=== PATIENT | female | born 1955 | race Caucasian/White ===

== ENCOUNTER 2016-05-22 17:35 | Emergency (ER) | payer BC ==
[2016-05-22] MEDS ORDERED: diPHENhydraMINE IV* 50 MG/ML 1 ml VIAL (BENADRYL) IV ONE (18:48)
[2016-05-22 19:03] LABS: Hematocrit 44 % (35-47); Hemoglobin 14.6 g/dl (12.0-16.0); Mean Corpuscular HGB Conc 33 g/dl (31-36); Mean Corpuscular Hemoglobin 29 pg (27-31); Mean Corpuscular Volume 88 fL (80-97); Mean Platelet Volume 9 um3 (7.4-10.4); Red Cell Distribution Width 15 % (10.5-15); White Blood Count 8.2 10^3/ul (3.5-10.8)
[2016-05-22 19:18] LABS: ALT 15 U/L (7-52); Albumin 4.1 g/dL (3.2-5.2); Alkaline Phosphatase 56 U/L (34-104); BUN/Creatinine Ratio 20.7 (8-20); Blood Urea Nitrogen 19 mg/dL (6-24); CO2 Carbon Dioxide 27 mmol/L (22-32); Calcium 9.3 mg/dL (8.6-10.3); Chloride 104 mmol/L (101-111); EGFR African American 79.8 (>60); EGFR Non-African American 62.1 (>60); Globulin 2.9 g/dL (2-4); Glucose 91 mg/dL (70-100); Lipase 75 U/L (11.0-82.0); Sodium 133 mmol/L (133-145)
[2016-05-22] MEDS ORDERED: Iohexol 350* (CONTRAST) 500 ML MDV IV ONE (19:20)
[2016-05-22 20:10] LABS: Urine Bacteria Absent (Absent); Urine Bilirubin Negative (Negative); Urine Glucose Negative (Negative); Urine Nitrite Negative (Negative)
--- NOTE | 2016-05-22 20:11 | RAD ---
INDICATION: Intermittent sharp lower back/flank pain. Post bilateral ovary resection. History of bowel adhesions. COMPARISON: November 28, 2015 CT angiogram. TECHNIQUE: Multidetector CT images were obtained from the lung bases to the ischial tuberosities with 80 mL Omnipaque 350 IV contrast. Arterial phase enhancement. Multiplanar reformation including maximum intensity projection. 3-D arterial volume rendering. REPORT: Images of the inferior thorax remarkable for mild dependent atelectasis. The liver, gallbladder, pancreas, and spleen are unremarkable. Medially extending diverticulum from the second segment of the duodenum without suggestion of acute inflammatory change. Negative for CT abnormality of the small bowel or appendix visualized along the RIGHT pelvic sidewall. Mild diverticulosis of the sigmoid colon without findings of diverticulitis. Negative for ascites or free air. Small fat-containing umbilical hernia without inflammatory change. Normal adrenal glands. Symmetric renal cortical enhancement. Negative for focal renal lesions or hydronephrosis. Unremarkable ureters and urinary bladder. Unremarkable rightward deviated anteverted uterus and adnexal regions. Negative for lymphadenopathy. Atherosclerotic plaque of normal diameter abdominal aorta and iliac arteries. Negative for arterial dissection. Atherosclerotic plaque results in approximate 0.7 cm length 50% stenosis at the celiac axis and approximate 30% short segment stenosis of the proximal superior mesenteric artery. Normal opacification of the inferior mesenteric artery. Negative for renal artery stenosis. Negative for suspicious osseous lesions or fractures. Mild lumbar sacral spine degenerative spondylosis and facet joint osteoarthritis without evidence for significant acquired spinal stenosis. IMPRESSION: 1. Atherosclerosis. Negative for aneurysm or dissection of the abdominal aorta. Approximate 50% celiac axis with significant improvement compared with the November 28, 2015 CT angiogram. Approximate 30% stenosis of the superior mesenteric artery proximally. 2. Normal appendix documented. Mild sigmoid colon diverticulosis without findings of diverticulitis. 3. Negative for obstructive uropathy.
[2016-05-22 20:30] VITALS: BP 123/78
--- NOTE | 2016-05-22 21:00 | ED ---
I, Oh,Bisi, scribed for Shakir Nair MD on 05/22/16 at 1840 . Back Pain - HPI Summary HPI Summary: This 60 y/o female presents to ED for acute, intermittent low back pain since 5 days ago. Movements such as standing straight from bent over position makes the pain worse. She has been controlling her pain with soma and oxycodone without much relief. She noted scant blood on wipe after urination today, and she became concerns and decided to visit ED. Pt is able to ambulate to ED room. She expresses concerns for possible kidney stones. She denies any injury or muscle strain, and states that pain is "from inside". PMHx includes anxiety, depression , and HLD. Pt is currently on oxycodone for chronic pelvic pain and unspecified "stomach issues". She states that she is currently weaning off, currently 15 mg TID from 30 mg TID. - History of Current Complaint Chief Complaint: EDBackInjuryPain Stated Complaint: FLANK PAIN, Time Seen by Provider: 05/22/16 18:14 Hx Obtained From: Patient, Family/Bottling Machine Operator - present at bedside, Medical Records Onset/Duration: Sudden Onset, Resolved Onset/Duration: Started Days Ago - 5 days ago, Atraumatic Timing: Intermittent Back Pain Location: Is Discrete @ - low back pain Pain Intensity: 5 Pain Scale Used: 0-10 Numeric Character: Sharp Aggravating Symptom(s): Movement - standing upright from bending over position Alleviating Symptom(s): Rest - Allergies/Home Medications Allergies/Adverse Reactions: Allergies Allergy/AdvReac Type Severity Reaction Status Date / Time Iodine Allergy Palpitation Verified 02/16/16 15:14 s Nicotine Allergy Rash Verified 02/16/16 15:14 Penicillins Allergy Rash Verified 02/16/16 15:14 Rabeprazole [From Aciphex] Allergy Rash Verified 02/16/16 15:14 Sulfa Antibiotics Allergy Rash Verified 02/16/16 15:14 CT CONTRAST Allergy Palpitation Uncoded 02/16/16 15:14 s PMH/Surg Hx/FS Hx/Imm Hx Endocrine/Hematology History: Denies: Hx Diabetes, Hx Systemic Lupus Erythematosus Cardiovascular History: Reports: Hx Hypercholesterolemia Denies: Hx Congestive Heart Failure, Hx Hypertension, Hx Pacemaker/ICD, Other Cardiovascular Problems/Disorders History: Denies: Hx Dialysis, Hx Renal Disease Musculoskeletal History: Denies: Hx Rheumatoid Arthritis Sensory History: Denies: Hx Hearing Aid Psychiatric History: Reports: Hx Anxiety, Hx Panic Disorder - ANXIETY/DEPRESSION - Cancer History Hx Chemotherapy: No - Surgical History Surgery Procedure, Year, and Place: Bilateral oopherectomy 2011; tubal ligation 1980; laparoscopy 2014 to explore patients pelvic symptoms--found adhesions with her bowel, surgery done to correct. Infectious Disease History: No Infectious Disease History: Denies: Traveled Outside the [place] in Last 30 Days - Family History Known Family History: Positive: Hypertension, Other - Aneurysm - Social History Alcohol Use: None Hx Substance Use: No Substance Use Type: Reports: None Substance Use Comment - Amount & Last Used: oxycodone Hx Tobacco Use: Yes Smoking Status (MU): Light Every Day Tobacco Smoker Type: Cigarettes Amount Used/How Often: 1/2 PPD Review of Systems Negative: Fever Positive: other - Brown specs on wipe after urination Positive: Other - low back pain Negative: Anxious, Depressed All Other Systems Reviewed And Are Negative: Yes Physical Exam Triage Information Reviewed: Yes Vital Signs On Initial Exam: Initial Vitals Temp Pulse Resp BP Pulse Ox 98.1 F 83 16 107/74 100 05/22/16 17:43 05/22/16 17:43 05/22/16 17:43 05/22/16 17:43 05/22/16 17:43 Vital Signs Reviewed: Yes Appearance: Positive: Well-Appearing, No Pain Distress Skin: Positive: Warm, Dry Head/Face: Positive: Normal Head/Face Inspection Eyes: Positive: NICK Neck: Positive: Supple, Nontender Respiratory/Lung Sounds: Positive: Breath Sounds Present Abdomen Description: Negative: CVA Tenderness (R), CVA Tenderness (L) Musculoskeletal: Positive: Strength/ROM Intact, Other - TTP at bilat paraspinal at PSIS Neurological: Positive: Sensory/Motor Intact, Alert, Oriented to Person Place, Time, Normal Gait - Without any information assistant or difficulty Psychiatric: Positive: Affect/Mood Appropriate AVPU Assessment: Alert Diagnostics - Vital Signs Vital Signs Temp Pulse Resp BP Pulse Ox 05/22/16 17:43 98.1 F 83 16 107/74 100 - Laboratory Lab Results: Lab Results 05/22/16 05/22/16 Range/Units 18:55 18:55 WBC 8.2 (3.5-10.8) 10^3/ul RBC 5.00 (4.0-5.4) 10^6/ul Hgb 14.6 (12.0-16.0) g/dl Hct 44 (35-47) % MCV 88 (80-97) fL MCH 29 (27-31) pg MCHC 33 (31-36) g/dl RDW 15 (10.5-15) % Plt Count 186 (150-450) 10^3/ul MPV 9 (7.4-10.4) um3 Sodium 133 (133-145) mmol/L Potassium TNP Chloride 104 (101-111) mmol/L Carbon Dioxide 27 (22-32) mmol/L Anion Gap TNP BUN 19 (6-24) mg/dL Creatinine 0.92 (0.51-0.95) mg/dL Est GFR ( Amer) 79.8 (>60) Est GFR (Non-Af Amer) 62.1 (>60) BUN/Creatinine Ratio 20.7 H (8-20) Glucose 91 (70-100) mg/dL Calcium 9.3 (8.6-10.3) mg/dL Total Bilirubin 0.40 (0.2-1.0) mg/dL AST TNP ALT 15 (7-52) U/L Alkaline Phosphatase 56 (34-104) U/L Total Protein 7.0 (6.4-8.9) g/dL Albumin 4.1 (3.2-5.2) g/dL Globulin 2.9 (2-4) g/dL Albumin/Globulin Ratio 1.4 (1-3) Lipase 75 (11.0-82.0) U/L Result Diagrams: 05/22/16 18:55 05/22/16 19:54 Lab Statement: Any lab studies that have been ordered have been reviewed, and results considered in the medical decision making process. - CT CTA Ab/P CT Interpretation: No Acute Changes - 1. Atherosclerosis. Negative for aneurysm or dissection of the abdominal aorta. Approximate 50% celiac axis with significant improvement compared with the November 28, 2015 CT angiogram. Approximate 30% stenosis of the superior mesenteric artery proximally. 2. Normal appendix documented. Mild sigmoid colon diverticulosis without findings of diverticulitis. 3. Negative for obstructive uropathy. CT Interpretation Completed By: Radiologist Back Pain Course/Dx - Diagnoses Differential Diagnosis/HQI/PQRI: Positive: Aneurysm, Renal Colic, Other - Primary concern for lumbar spasm; however, she is insistent that she has a FHX of aneurysm. No palpable mass and low pretest probability. She is clearly abusing narcotics and not truly weaning and is actually escalating her narcotics , with supplementation with benzodiazepines and supplemental narcotics from differing prescribers. CTA for evaluation of aneyrysm and DC home with prolonged discussion of PCP FU, nsaids and physical therapy targeted at the back. Patient continues to change her story about needing narcotic medications and her current regimen which is inconsistent with the [facility]ATCHER. Provider Diagnoses: Back muscle spasm Discharge - Discharge Plan Condition: Stable Disposition: HOME Prescriptions: Methocarbamol TAB* [Robaxin TAB*] 750 mg PO TID PRN #10 tab MDD 3 PRN Reason: Back Spasm Patient Education Materials: Muscle Spasm (ED) Referrals: Jean Paul Ordaz MD [Primary Care Provider] - If Needed The documentation as recorded by the Arnie huber Soohyun accurately reflects the service I personally performed and the decisions made by me, Shakir Nair MD.
== END 2016-05-22 21:02 | disposition home or self-care (01) ==
LOC: ED 17:35
DX: M62.830 Muscle spasm of back (principal); M54.5 Low back pain
CPT/HCPCS: 36415; 74174; 80053; 81003; 81015; 83690; 85027; 87086; 96374; 99282; J1200; Q9967

== ENCOUNTER 2017-02-26 17:03 | Emergency (ER) | payer BC ==
[2017-02-26] MEDS ORDERED: methylPREDNISolone 125 MG* 2 ML VIAL IV ONE (18:16)
[2017-02-26] MEDS ORDERED: Levofloxacin 750 MG IVPREMIX(* 750 MG/150 ML BAG IVPB ONE (18:16)
[2017-02-26] MEDS ORDERED: Albuterol/Ipratropium NEB.SOL* Albuterol 2.5 MG/Ipratropium 0.5 MG 3 ML INH ONE ×2 (18:16→20:44)
[2017-02-26] MEDS ORDERED: NS 0.9% 1000 ML* 1,000 ML IV SCH (18:30)
[2017-02-26 18:33] LABS: Hematocrit 47 % (35-47); Hemoglobin 15.6 g/dl (12.0-16.0); Mean Corpuscular HGB Conc 34 g/dl (31-36); Mean Corpuscular Hemoglobin 31 pg (27-31); Mean Corpuscular Volume 92 fL (80-97); Mean Platelet Volume 9 um3 (7.4-10.4); Red Blood Count 5.07 10^6/ul (4.0-5.4); Red Cell Distribution Width 14 % (10.5-15); White Blood Count 9.7 10^3/ul (3.5-10.8)
[2017-02-26 18:49] LABS: BUN/Creatinine Ratio 13.8 (8-20); C Reactive Protein 3.29 mg/L (< 5.00); Calcium 9.4 mg/dL (8.6-10.3); EGFR African American 77.6 (>60); EGFR Non-African American 60.3 (>60); Magnesium 2.3 mg/dL (1.9-2.7); Potassium 3.9 mmol/L (3.5-5.0); Total Bilirubin 0.4 mg/dL (0.2-1.0)
[2017-02-26] MEDS ORDERED: LORazepam INJ* 2 MG/ML 1 ML VIAL IV ONE (18:50)
--- NOTE | 2017-02-26 18:55 | RAD ---
HISTORY: Shortness of breath, cough COMPARISONS: February 20, 2017 VIEWS: 1: frontal portable view of the chest at 6:25 PM FINDINGS: LINES AND TUBES: None. CARDIOMEDIASTINAL SILHOUETTE: The cardiomediastinal silhouette is normal for portable technique. PLEURA: The costophrenic angles are sharp. No pleural abnormalities are noted. LUNG PARENCHYMA: There is hyperinflation. ABDOMEN: The upper abdomen is clear. There is no subphrenic gas. BONES AND SOFT TISSUES: No bone or soft tissue abnormalities are noted. IMPRESSION: NO ACTIVE CARDIOPULMONARY DISEASE.
[2017-02-26 19:18] LABS: TSH (Thyroid Stimulating Horm) 0.83 mcIU/mL (0.34-5.60)
[2017-02-26 19:59] LABS: Urine Bacteria Absent (Absent); Urine Bilirubin Negative (Negative); Urine Glucose Negative (Negative); Urine Nitrite Negative (Negative)
[2017-02-26] MEDS ORDERED: predniSONE TAB* 20 MG PO ONE (20:49)
--- NOTE | 2017-02-26 21:53 | ED ---
Jose L Leon Alfonso, scribed for Gonzalo Rooney MD on 02/26/17 at 1909 . Shortness of Breath - HPI Summary HPI Summary: This patient is a 61 year old F presenting to [facility] accompanied by with a chief complaint of SOB since 6 days ago. The patient went to urgent care 6 days ago for these symptoms. Symptoms alleviated by nothing. Patient reports productive cough (yellow/ brown sputum), chest congestion, fever (for which she is taking OTC medication), tiredness, wheezing, and CP (intermittent and aggravated by coughing). Patient denies calf swelling, and rhinorrhea. - History of Current Complaint Chief Complaint: EDShortnessOfBreath Time Seen by Provider: 02/26/17 17:24 Hx Obtained From: Patient Onset/Duration: Gradual Onset, Lasting Days, Still Present Timing: Constant Alleviating Factors: Nothing Associated Signs & Symptoms: Cough (Productive) - yellow/brown sputum, Wheezing , Chest Pain w/Cough, Fever - Allergy/Home Medications Allergies/Adverse Reactions: Allergies Allergy/AdvReac Type Severity Reaction Status Date / Time Erythromycin Allergy Rash Verified 02/26/17 17:11 Iodine Allergy Palpitation Verified 02/26/17 17:11 s Nicotine Allergy Rash Verified 02/26/17 17:11 Penicillins Allergy Rash Verified 02/26/17 17:11 Rabeprazole [From Aciphex] Allergy Rash Verified 02/26/17 17:11 Sulfa Antibiotics Allergy Rash Verified 02/26/17 17:11 CT CONTRAST Allergy Palpitation Uncoded 02/26/17 17:11 s PMH/Surg Hx/FS Hx/Imm Hx Endocrine/Hematology History: Denies: Hx Diabetes, Hx Systemic Lupus Erythematosus Cardiovascular History: Reports: Hx Hypercholesterolemia, Other Cardiovascular Problems/Disorders - MURMUR Denies: Hx Congestive Heart Failure, Hx Hypertension, Hx Pacemaker/ICD History: Denies: Hx Dialysis, Hx Renal Disease Musculoskeletal History: Denies: Hx Rheumatoid Arthritis Sensory History: Denies: Hx Hearing Aid Psychiatric History: Reports: Hx Anxiety, Hx Depression, Hx Panic Disorder - ANXIETY/DEPRESSION - Cancer History Hx Chemotherapy: No - Surgical History Surgery Procedure, Year, and Place: Bilateral oopherectomy 2011; tubal ligation 1980; laparoscopy 2014 to explore patients pelvic symptoms--found adhesions with her bowel, surgery done to correct. peripheral vascular surgery L leg - 2014 Infectious Disease History: No Infectious Disease History: Denies: Hx Shingles, Traveled Outside the [place] in Last 30 Days - Family History Known Family History: Positive: Hypertension, Other - Aneurysm - Social History Alcohol Use: None Hx Substance Use: No Substance Use Type: Reports: Prescribed Substance Use Comment - Amount & Last Used: oxycodone Hx Tobacco Use: Yes Smoking Status (MU): Light Every Day Tobacco Smoker Type: Cigarettes Amount Used/How Often: 1/2 PPD Review of Systems Positive: Fever, Other - tiredness Positive: Other - Negative rhinorrhea Positive: Chest Pain - intermittent Positive: Shortness Of Breath, Cough, Other - chest congestion, wheezing Positive: Abdominal Pain - chronic for past 6 years Negative: Edema - in calf All Other Systems Reviewed And Are Negative: Yes Physical Exam - Summary Physical Exam Summary: General: well-appearing, no pain distress Skin: warm, color reflects adequate perfusion, dry Head: normal Eyes: EOMI, NICK ENT: normal Neck: supple, nontender Respiratory: Wheezing, rhonchi bilaterally, and mild respiratory distress. Cardiovascular: RRR Abdomen: soft, nontender Bowel: present Musculoskeletal: normal, strength/ROM intact Neurological: normal, sensory/motor intact, A&O x3 Psychological: affect/mood appropriate Triage Information Reviewed: Yes Vital Signs On Initial Exam: Initial Vitals Temp Pulse Resp BP Pulse Ox 97.6 F 90 18 151/83 97 02/26/17 17:07 02/26/17 17:07 02/26/17 17:07 02/26/17 17:07 02/26/17 17:07 Vital Signs Reviewed: Yes - [place] Coma Scale Coma Scale Total: 15 Diagnostics - Vital Signs Vital Signs Temp Pulse Resp BP Pulse Ox 02/26/17 17:34 84 8 97 02/26/17 17:32 18 02/26/17 17:07 97.6 F 90 18 151/83 97 - Laboratory Lab Results: Lab Results 02/26/17 02/26/17 02/26/17 Range/Units 18:20 18:20 18:20 WBC (3.5-10.8) 10^3/ul RBC (4.0-5.4) 10^6/ul Hgb (12.0-16.0) g/dl Hct (35-47) % MCV (80-97) fL MCH (27-31) pg MCHC (31-36) g/dl RDW (10.5-15) % Plt Count (150-450) 10^3/ul MPV (7.4-10.4) um3 Neut % (Auto) (38-83) % Lymph % (Auto) (25-47) % [place] % (Auto) (1-9) % Eos % (Auto) (0-6) % Baso % (Auto) (0-2) % Absolute Neuts (auto) (1.5-7.7) 10^3/ul Absolute Lymphs (auto) (1.0-4.8) 10^3/ul Absolute Monos (auto) (0-0.8) 10^3/ul Absolute Eos (auto) (0-0.6) 10^3/ul Absolute Basos (auto) (0-0.2) 10^3/ul Absolute Nucleated RBC 10^3/ul Nucleated RBC % INR (Anticoag Therapy) 0.96 (0.89-1.11) APTT 32.5 (26.0-36.3) seconds Sodium 138 (133-145) mmol/L Potassium 3.9 (3.5-5.0) mmol/L Chloride 105 (101-111) mmol/L Carbon Dioxide 30 (22-32) mmol/L Anion Gap 3 (2-11) mmol/L BUN 13 (6-24) mg/dL Creatinine 0.94 (0.51-0.95) mg/dL Est GFR ( Amer) 77.6 (>60) Est GFR (Non-Af Amer) 60.3 (>60) BUN/Creatinine Ratio 13.8 (8-20) Glucose 94 (70-100) mg/dL Lactic Acid (0.5-2.0) mmol/L Calcium 9.4 (8.6-10.3) mg/dL Magnesium 2.3 (1.9-2.7) mg/dL Total Bilirubin 0.40 (0.2-1.0) mg/dL AST 15 (13-39) U/L ALT 10 (7-52) U/L Alkaline Phosphatase 74 (34-104) U/L Troponin I 0.00 (<0.04) ng/mL C-Reactive Protein 3.29 (< 5.00) mg/L B-Natriuretic Peptide 24 ( - 100) pg/mL Total Protein 7.0 (6.4-8.9) g/dL Albumin 4.0 (3.2-5.2) g/dL Globulin 3.0 (2-4) g/dL Albumin/Globulin Ratio 1.3 (1-3) Lipase 54 (11.0-82.0) U/L TSH 0.83 (0.34-5.60) mcIU/mL Urine Color Urine Appearance Urine pH (5-9) Ur Specific [place] (1.010-1.030) Urine Protein (Negative) Urine Ketones (Negative) Urine Blood (Negative) Urine Nitrate (Negative) Urine Bilirubin (Negative) Urine Urobilinogen (Negative) Ur Leukocyte Esterase (Negative) Urine WBC (Auto) (Absent) Urine RBC (Auto) (Absent) Ur Squamous Epith Cells (Absent) Urine Bacteria (Absent) Urine Glucose (Negative) 02/26/17 02/26/17 02/26/17 Range/Units 18:20 18:20 19:20 WBC 9.7 (3.5-10.8) 10^3/ul RBC 5.07 (4.0-5.4) 10^6/ul Hgb 15.6 (12.0-16.0) g/dl Hct 47 (35-47) % MCV 92 (80-97) fL MCH 31 (27-31) pg MCHC 34 (31-36) g/dl RDW 14 (10.5-15) % Plt Count 239 (150-450) 10^3/ul MPV 9 (7.4-10.4) um3 Neut % (Auto) 62.4 (38-83) % Lymph % (Auto) 27.7 (25-47) % [place] % (Auto) 5.8 (1-9) % Eos % (Auto) 3.6 (0-6) % Baso % (Auto) 0.5 (0-2) % Absolute Neuts (auto) 6.0 (1.5-7.7) 10^3/ul Absolute Lymphs (auto) 2.7 (1.0-4.8) 10^3/ul Absolute Monos (auto) 0.6 (0-0.8) 10^3/ul Absolute Eos (auto) 0.4 (0-0.6) 10^3/ul Absolute Basos (auto) 0.1 (0-0.2) 10^3/ul Absolute Nucleated RBC 0 10^3/ul Nucleated RBC % 0.1 INR (Anticoag Therapy) (0.89-1.11) APTT (26.0-36.3) seconds Sodium (133-145) mmol/L Potassium (3.5-5.0) mmol/L Chloride (101-111) mmol/L Carbon Dioxide (22-32) mmol/L Anion Gap (2-11) mmol/L BUN (6-24) mg/dL Creatinine (0.51-0.95) mg/dL Est GFR ( Amer) (>60) Est GFR (Non-Af Amer) (>60) BUN/Creatinine Ratio (8-20) Glucose (70-100) mg/dL Lactic Acid 1.0 (0.5-2.0) mmol/L Calcium (8.6-10.3) mg/dL Magnesium (1.9-2.7) mg/dL Total Bilirubin (0.2-1.0) mg/dL AST (13-39) U/L ALT (7-52) U/L Alkaline Phosphatase (34-104) U/L Troponin I (<0.04) ng/mL C-Reactive Protein (< 5.00) mg/L B-Natriuretic Peptide ( - 100) pg/mL Total Protein (6.4-8.9) g/dL Albumin (3.2-5.2) g/dL Globulin (2-4) g/dL Albumin/Globulin Ratio (1-3) Lipase (11.0-82.0) U/L TSH (0.34-5.60) mcIU/mL Urine Color Yellow Urine Appearance Clear Urine pH 5.0 (5-9) Ur Specific [place] 1.017 (1.010-1.030) Urine Protein Negative (Negative) Urine Ketones Negative (Negative) Urine Blood 2+ H (Negative) Urine Nitrate Negative (Negative) Urine Bilirubin Negative (Negative) Urine Urobilinogen Negative (Negative) Ur Leukocyte Esterase 1+ H (Negative) Urine WBC (Auto) 1+(6-10/hpf) H (Absent) Urine RBC (Auto) 3+(>10/hpf) H (Absent) Ur Squamous Epith Cells Present H (Absent) Urine Bacteria Absent (Absent) Urine Glucose Negative (Negative) Result Diagrams: 02/26/17 18:20 02/26/17 18:20 Lab Statement: Any lab studies that have been ordered have been reviewed, and results considered in the medical decision making process. - Radiology CXR Radiology Interpretation Completed By: Radiologist - NO ACTIVE CARDIOPULMONARY DISEASE. ED physician has reviewed this radiology report and agrees. - EKG 1717 Cardiac Rate: NL EKG Rhythm: Sinus Rhythm - [address] Segment: Normal Ectopy: None Course/Dx - Course Course Of Treatment: IMPROVED IN THE ED AFTER DUONEB X 2 AND SOLUMEDROL. DISCUSSED RESULTS WITH PATIENT AND . AMBULATED IN THE ED. F/U PMD; RETURN IF WORSE. - Diagnoses Provider Diagnoses: Bronchitis, Asthma Discharge - Discharge Plan Condition: Stable Disposition: HOME Prescriptions: Albuterol HFA INHALER* [Ventolin HFA Inhaler*] 2 puff INH Q4H PRN #1 mdi PRN Reason: Dyspnea predniSONE TAB* [Deltasone TAB*] 40 mg PO DAILY #8 tab Patient Education Materials: Asthma (ED), Acute Bronchitis (ED), Wheezing (ED) Referrals: Haydee Thompson MD [Primary Care Provider] - Additional Instructions: FOLLOW UP WITH YOUR DOCTOR. RETURN TO THE EMERGENCY DEPARTMENT FOR ANY WORSENING OF YOUR CONDITION; FEVER, CHEST PAIN, SHORTNESS OF BREATH OR QUESTIONS OR CONCERNS. The documentation as recorded by the Jose L huber Alfonso accurately reflects the service I personally performed and the decisions made by me, Gonzalo Rooney MD.
[2017-02-26 22:31] VITALS: BP 105/58
== END 2017-02-26 22:31 | disposition home or self-care (01) ==
LOC: ED 17:03
DX: J45.909 Unspecified asthma, uncomplicated (principal); F32.9 Major depressive disorder, single episode, unspecified; F41.9 Anxiety disorder, unspecified; F17.210 Nicotine dependence, cigarettes, uncomplicated; R10.9 Unspecified abdominal pain; G89.29 Other chronic pain
CPT/HCPCS: 36415; 71010; 80053; 81003; 81015; 83605; 83690; 83735; 83880; 84443; 84484; 85025; 85610; 85730; 86140; 87086; 93005; 94640; 96374; 96375; 99283; A9270-GY; J2060; J2930; J7512

== ENCOUNTER 2018-01-22 16:56 | Emergency (ER) | payer BC ==
[2018-01-22 17:04] VITALS: BP 124/74
[2018-01-22] MEDS ORDERED: Ipratropium 0.5MG/2.5ML NEB* 0.5 MG/2.5 ML NEB.SOLN INH ONE (17:22)
[2018-01-22] MEDS ORDERED: Albuterol 2.5 MG/3 ML NEB.SOL* (0.083%) INH ONE (17:22)
--- NOTE | 2018-01-22 17:44 | UC ---
Respiratory Complaint HPI - HPI Summary HPI Summary: The patient is a 62-year-old female with a one-week history of progressively worsening cough and wheezing. Her cough has been productive of sputum. She has had chills but no fever. She has been using an inhaler with some modest relief. She denies any shortness of breath. - History of Current Complaint Chief Complaint: UCRespiratory Stated Complaint: COUGH Time Seen by Provider: 01/22/18 17:17 Hx Obtained From: Patient Onset/Duration: Gradual Onset, Lasting Days Severity Initially: Mild Severity Currently: Moderate Pain Intensity: 5 Pain Scale Used: 0-10 Numeric Character: Cough: Productive Aggravating Factors: Deep Breaths Alleviating Factors: Nothing Associated Signs And Symptoms: Positive: Wheezing - Allergies/Home Medications Allergies/Adverse Reactions: Allergies Allergy/AdvReac Type Severity Reaction Status Date / Time erythromycin base Allergy Mild Rash Verified 01/22/18 17:05 Iodine and Iodide Containing Allergy Mild Palpitation Verified 01/22/18 17:05 Produc s nicotine Allergy Mild Rash Verified 01/22/18 17:05 Penicillins Allergy Mild Rash Verified 01/22/18 17:05 rabeprazole [From Aciphex] Allergy Mild Rash Verified 01/22/18 17:05 Home Medications: Home Medications Duloxetine HCl [Cymbalta] 20 mg PO BID 01/22/18 [History Confirmed 01/22/18] PMH/Surg Hx/FS Hx/Imm Hx Previously Healthy: Yes Endocrine History: Dyslipidemia Cardiovascular History: Hypertension Respiratory History: Bronchitis - Surgical History Surgical History: Yes Surgery Procedure, Year, and Place: Bilateral oopherectomy 2011; tubal ligation 1980; laparoscopy 2014 to explore patients pelvic symptoms--found adhesions with her bowel, surgery done to correct. peripheral vascular surgery L leg - 2014 - Family History Known Family History: Positive: Hypertension, Other - Aneurysm - Social History Alcohol Use: None Substance Use Type: None Substance Use Comment - Amount & Last Used: oxycodone Smoking Status (MU): Light Every Day Tobacco Smoker Type: Cigarettes Amount Used/How Often: 1/2 PPD - Immunization History Most Recent Influenza Vaccination: 2017 Review of Systems Constitutional: Chills Skin: Negative Eyes: Negative ENT: Nasal Discharge, Sinus Congestion Respiratory: Cough Cardiovascular: Negative Gastrointestinal: Negative Genitourinary: Negative Motor: Negative Neurovascular: Negative Musculoskeletal: Negative Neurological: Negative Psychological: Negative All Other Systems Reviewed And Are Negative: Yes Physical Exam Triage Information Reviewed: Yes Appearance: Well-Appearing, No Pain Distress, Well-Nourished Vital Signs: Initial Vital Signs Temp 98.1 F 01/22/18 17:01 Pulse 88 01/22/18 17:01 Resp 18 01/22/18 17:01 BP 124/74 01/22/18 17:01 Pulse Ox 96 01/22/18 17:01 Vital Signs Reviewed: Yes Eyes: Positive: Conjunctiva Clear ENT: Positive: Hearing grossly normal. Negative: Nasal congestion, Nasal drainage, Dental tenderness, Sinus tenderness Neck: Positive: Supple, Nontender Respiratory: Positive: Lungs clear, Normal breath sounds, No respiratory distress, No accessory muscle use Cardiovascular: Positive: RRR, No Murmur Musculoskeletal: Positive: ROM Intact, No Edema Neurological: Positive: Alert Psychological Exam: Normal Skin Exam: Normal UC Diagnostic Evaluation - Laboratory O2 Sat by Pulse Oximetry: 96 - normal/not hypoxic Re-Evaluation - Re-Evaluation First Eval Re-Evaluation Time: 17:58 Change: Improved - lungs clear Respiratory Course/Dx - Differential Dx/Diagnosis Provider Diagnoses: acute bronchitis with Bronchospasm Discharge - Sign-Out/Discharge Documenting (check all that apply): Patient Departure All imaging exams completed and their final reports reviewed: No Studies - Discharge Plan Condition: Stable Disposition: HOME Prescriptions: DOXYcycline CAP(*) [DOXYcycline 100MG CAP(*)] 100 mg PO BID #12 cap predniSONE [Deltasone 20 MG TAB] 20 mg PO DAILY #4 tab Patient Education Materials: Acute Bronchitis (ED) Referrals: Haydee Thompson MD [Primary Care Provider] - 4 Days (if not better) Additional Instructions: use inhaler as directed recheck for new or worsening symptoms - Billing Disposition and Condition Condition: STABLE Disposition: Home
[2018-01-22] MEDS ORDERED: DOXYcycline CAP(*) 100 MG PO ONE ×2 (17:55→18:00)
[2018-01-22] MEDS ORDERED: predniSONE TAB* 20 MG PO ONE (17:55)
[2018-01-22] MEDS ORDERED: Albuterol HFA INHALER* 8 gm MDI INH ONE (17:55)
== END 2018-01-22 18:11 | disposition home or self-care (01) ==
LOC: UCEAST 16:56
DX: J20.9 Acute bronchitis, unspecified (principal); E78.5 Hyperlipidemia, unspecified; I10 Essential (primary) hypertension; F17.210 Nicotine dependence, cigarettes, uncomplicated; Z88.1 Allergy status to other antibiotic agents; Z88.0 Allergy status to penicillin; Z88.8 Allergy status to other drugs, medicaments and biological substances; Z79.899 Other long term (current) drug therapy
CPT/HCPCS: 99213; A9270-GY; G0463; J7512

== ENCOUNTER 2018-02-23 17:46 | Emergency (ER) | payer BC ==
--- OUTSIDE RECORDS SUMMARY | 2018-02-23 17:51 | XMS REPORT ---
:1955 External Reference #:[id number] Author Organization [facility] Address [address] [place] [place] [address] Phone [phone] Care Team Providers Name Role Phone Haydee Thompson MD Primary Care Physician Unavailable Payers Type Date Identification Numbers Payment Provider Subscriber Commercial Expires: Policy Number: [id number] [employer]ets Ruby Sutton 2015 PayID: [id number] [address] [address] [place] [address] Medigap Part B Effective: 2015 Policy Number: BS Facets Ruby Sutton [id number] PayID: [id number] [address] [address] [place] [address] Problems Date Description Provider Status Onset: 04/01/2014 Chest pain Mahesh Guevara M.D., Active DUSTIN NGUYEN Onset: 05/12/2015 Aortic valve disorder Mahesh Guevara M.D., Active UDSTIN NGUYEN Onset: 07/10/2015 Peripheral vascular disease Pj Mayen M.D. Active Onset: 07/10/2015 Pelvic and perineal pain Pj Mayen M.D. Active Onset: 09/25/2015 Generalized abdominal pain Pj Mayen M.D. 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 Allergies, Adverse Reactions, Alerts Date Description Reaction Status Severity Comments 04/01/2014 Penicillin Rash active Moderate to Severe 04/01/2014 Sulfa Antibiotics Rash active Moderate to Severe 04/01/2014 Aciphex Rash active Moderate to Severe 07/10/2015 Tramadol active 07/28/2016 Levofloxacin Redness and swelling active Medications Medication Date Status Form Strength Qnty SIG Indications Ordering Provider Lipitor Active Tablets 20mg 90tab one tab by Unknown /0000 s mouth every night at bedtime Vitamin D-3 Active Capsules 1000Unit 90cap 1 by mouth Unknown /0000 s every day Aspirin Active Tablets 81mg 1 by mouth Unknown /0000 DR every day Escitalopram Active Tablets 20mg one tab by Aksie, Oxalate /0000 mouth daily MD Eze Clonazepam Active Tablets 0.5mg 1 by mouth as Unknown /0000 Dispers needed Quetiapine Active Tablets 100mg 1/2 tab at Kasie, Fumarate /0000 bedtime MD Eze Duloxetine HCL Active Caps DR 20mg 1 by mouth Unknown /0000 Part twice a day Doxycycline Active seven day Unknown Hyclate /0000 dose for bronchitis, done on tuesday01/29/18 Prednisone Active as directed Unknown /0000 Brilinta 12/24 Hx Tablets 90mg 60tab 1 tab by Pj Hamm s mouth twice a Politi, - day M.D. 04/06 Brilinta 12/20 Hx Tablets 60mg 180ta 1 tab by Pj Hamm bs mouth every Politi, - day M.D. 12/23 Plavix 09/09 Hx Tablets 75mg 30tab 1 by mouth Pj Hamm /2015 s every day Vinod Mayen M.D. 11/25 Escitalopram Hx Tablets 30mg 30tab 1 by mouth Unknown Oxalate /0000 s every day - 04/06 Xanax Hx Tablets 1mg 10tab 1/2-1 by Unknown /0000 s mouth every - day as needed 04/18 Prilosec Hx Capsules 10mg 1 by mouth Unknown /0000 DR every day - 05/08 Sucralfate Hx Tablets 1gm 1 po bid Unknown /0000 before meals - 04/18 Enlyte Hx Capsules 1 cap po bid Unknown /0000 - 04/21 Klonopin Hx Tablets 0.5mg 1po three Unknown /0000 times a day - prn 06/27 Pentoxisylline Hx 400ER 1 tab by Unknown /0000 mouth daily - for increased 11/25 blood flow [id number] Hx Chewtabs 1mg take one Unknown /0000 capsule/table - t daily 05/31 sublingually /2017 Oxycodone HCL Hx Tablets 10mg 1-2 by mouth Unknown /0000 tid a day as - needed 02/15 Trental Hx Tablets 400mg Unknown /0000 ER - 11/25 Zoloft Hx Tablets 100mg 1 1/2 tabs Unknown /0000 daily - 05/30 Oxycodone HCL 00 Hx Tablets 10mg 1 tab tid prn Unknown /0000 - 01/18 Cephalexin Hx Capsules 250mg Juan, /0000 Earnestine Murrieta MD 01/18 Alprazolam Hx Tablets 0.5mg as needed Kasie, /0000 Vinod Loo MD 01/18 Nicotine Hx Patches 21mg/24HR apply one Unknown Transdermal /0000 24HR patch daily System Step 1 - 01/18 Medications Administered in Office Medication Date Status Form Strength Qnty SIG Indications Ordering Provider Technetium TC Administered Injection Mahesh Tamayo [id number] Devonte Guevara M.D., FACC, Per Unit Dose FASNC Up To 40 Millicuries Vital Signs Date Vital Result Comment 01/25/2018 Height 64 inches 5'4" Weight 142.00 lb Heart Rate 80 /min BP Systolic Sitting 124 mmHg Lue reg cuff BP Diastolic Sitting 80 mmHg Lue reg cuff Respiratory Rate 16 /min BMI (Body Mass Index) 24.4 kg/m2 06/01/2017 Height 64 inches 5'4" Weight 143.00 lb with shoes Heart Rate 64 /min BP Systolic Sitting 112 mmHg Rue reg cuff BP Diastolic Sitting 70 mmHg Rue reg cuff BP Systolic Standing 104 mmHg Rue reg cuff BP Diastolic Standing 66 mmHg Rue reg cuff Respiratory Rate 17 /min BMI (Body Mass Index) 24.5 kg/m2 Ejection Fraction 55-60% 04/20/2017-echo 01/19/2017 Height 64 inches 5'4" Weight 150.00 lb w/o shoes Heart Rate 64 /min irregular BP Systolic Sitting 118 mmHg lue reg cuff BP Diastolic Sitting 80 mmHg lue reg cuff Respiratory Rate 18 /min BMI (Body Mass Index) 25.7 kg/m2 07/28/2016 Height 64 inches 5'4" Weight 147.00 lb w/o shoes Heart Rate 68 /min reg BP Systolic Sitting 104 mmHg Lue, reg cuff BP Diastolic Sitting 70 mmHg Lue, reg cuff Respiratory Rate 16 /min BMI (Body Mass Index) 25.2 kg/m2 04/07/2016 Height 64 inches 5'4" Weight 150.00 lb Heart Rate 80 /min BP Systolic Sitting 122 mmHg BP Diastolic Sitting 62 mmHg BMI (Body Mass Index) 25.7 kg/m2 01/08/2016 Height 64 inches 5'4" Weight 150.00 lb Heart Rate 76 /min BP Systolic Sitting 104 mmHg right arm, reg cuff BP Diastolic Sitting 74 mmHg right arm, reg cuff Respiratory Rate 16 /min BMI (Body Mass Index) 25.7 kg/m2 11/27/2015 Height 64 inches 5'4" Weight 152.00 lb Heart Rate 62 /min BP Systolic Sitting 110 mmHg right arm, reg cuff BP Diastolic Sitting 80 mmHg right arm, reg cuff Respiratory Rate 16 /min BMI (Body Mass Index) 26.1 kg/m2 09/25/2015 Heart Rate 80 /min BP Systolic Sitting 120 mmHg BP Diastolic Sitting 82 mmHg 08/19/2015 Height 64 inches 5'4" Weight 150.00 lb Heart Rate 68 /min BP Systolic Sitting 118 mmHg BP Diastolic Sitting 72 mmHg BMI (Body Mass Index) 25.7 kg/m2 07/24/2015 Height 64 inches 5'4" Weight 152.00 lb Heart Rate 62 /min BP Systolic Sitting 90 mmHg BP Diastolic Sitting 70 mmHg Respiratory Rate 17 /min BMI (Body Mass Index) 26.1 kg/m2 07/10/2015 Height 64 inches 5'4" Weight 152.00 lb Heart Rate 70 /min pedal and popliteal pulses noted with dopplar + BP Systolic Sitting 112 mmHg BP Diastolic Sitting 68 mmHg BMI (Body Mass Index) 26.1 kg/m2 05/23/2015 Height 64.5 inches 5'4.50" Weight 145.00 lb Heart Rate 80 /min BP Systolic Sitting 130 mmHg BP Diastolic Sitting 84 mmHg Respiratory Rate 16 /min BMI (Body Mass Index) 24.5 kg/m2 05/12/2015 Height 64.5 inches 5'4.50" Weight 149.00 lb w/o shoes Heart Rate 78 /min reg BP Systolic Sitting 134 mmHg Rue, reg cuff BP Diastolic Sitting 90 mmHg Rue, reg cuff BP Systolic Standing 130 mmHg Rue BP Diastolic Standing 86 mmHg Rue Respiratory Rate 16 /min BMI (Body Mass Index) 25.2 kg/m2 Ejection Fraction 55-60% as of 04/23/15 echo 04/29/2014 Height 64.5 inches 5'4.50" Weight 131.00 lb no shoes Heart Rate 68 /min BP Systolic Sitting 130 mmHg Ra, reg cuff BP Diastolic Sitting 80 mmHg Ra, reg cuff BP Systolic Standing 122 mmHg Ra, reg cuff BP Diastolic Standing 78 mmHg Ra, reg cuff Respiratory Rate 18 /min BMI (Body Mass Index) 22.1 kg/m2 04/01/2014 Height 64.5 inches 5'4.50" Weight 130.00 lb Heart Rate 82 /min BP Systolic Sitting 124 mmHg Ra reg cuff BP Diastolic Sitting 80 mmHg Ra reg cuff BP Systolic Standing 122 mmHg Ra reg cuff BP Diastolic Standing 74 mmHg Ra reg cuff Respiratory Rate 14 /min BMI (Body Mass Index) 22.0 kg/m2 Results Test Date Test Result H/L Range Note Order 03/07/2017 Stress Test, Exercise <pending> Echocardiogram Basic Metabolic Panel 11/27/2015 Sodium 138 mmol/L 133-145 Potassium 4.4 mmol/L 3.5-5.0 Chloride 102 mmol/L 101-111 Co2 Carbon Dioxide 32 mmol/L 22-32 Anion Gap 4 mmol/L 2-11 Glucose 89 mg/dL 70-100 Blood Urea Nitrogen 10 mg/dL 6-24 Creatinine 0.96 mg/dL High 0.51-0.95 BUN/Creatinine Ratio 10.4 8-20 Calcium 9.3 mg/dL 8.6-10.3 Egfr Non- 59.1 >60 Egfr 76.0 >60 1 CBC Auto Diff 09/08/2015 White Blood Count 5.1 10^3/uL 3.5-10.8 Red Blood Count 4.89 10^6/uL 4.0-5.4 Hemoglobin 14.9 g/dL 12.0-16.0 Hematocrit 46 % 35-47 Mean Corpuscular Volume 94 fL 80-97 Mean Corpuscular Hemoglobin 31 pg 27-31 Mean Corpuscular HGB Conc 33 g/dL 31-36 Red Cell Distribution Width 13 % 10.5-15 Platelet Count 206 10^3/uL 150-450 Mean Platelet Volume 10 um3 7.4-10.4 Abs Neutrophils 3.3 10^3/uL 1.5-7.7 Abs Lymphocytes 1.3 10^3/uL 1.0-4.8 Abs Monocytes 0.3 10^3/uL 0-0.8 Abs Eosinophils 0.2 10^3/uL 0-0.6 Abs Basophils 0 10^3/uL 0-0.2 Abs Nucleated RBC 0.01 10^3/uL Granulocyte % 63.7 % 38-83 Lymphocyte % 25.0 % 25-47 Monocyte % 5.6 % 1-9 Eosinophil % 4.8 % 0-6 Basophil % 0.9 % 0-2 Nucleated Red Blood Cells % 0.1 Inr/Protime 09/08/2015 Inr 0.98 0.89-1.11 Basic Metabolic Panel 09/08/2015 Sodium 138 mmol/L 133-145 Potassium 4.2 mmol/L 3.5-5.0 Chloride 105 mmol/L 101-111 Co2 Carbon Dioxide 31 mmol/L 22-32 Anion Gap 2 mmol/L 2-11 Glucose 87 mg/dL 70-100 Blood Urea Nitrogen 11 mg/dL 6-24 Creatinine 1.01 mg/dL High 0.51-0.95 BUN/Creatinine Ratio 10.9 8-20 Calcium 9.5 mg/dL 8.6-10.3 Egfr Non- 55.7 >60 Egfr 71.7 >60 2 Laboratory test finding 08/04/2015 Erythrocyte Sed Rate 10 mm/Hr 0-30 3 Connective Tissue Panel 08/04/2015 Anti-Nuclear Antibody 0.1 U 4 Cyclic Citrullinated Peptide <15.6 U 5 Interpretation See Comment 6 Protein Electrophoresis 08/04/2015 Total Protein(Pep) 6.7 g/dL 6.3 - 7.9 Albumin 3.6 g/dL 3.4-4.7 Alpha-1 Globulin 0.2 g/dL 0.1-0.3 Alpha-2 Globulin 0.9 g/dL 0.6-1.0 Beta Globulin 0.8 g/dL 0.7-1.2 Gamma Globulin 1.2 g/dL 0.6-1.6 Albumin/Globulin Ratio 1.16 Impression See Comment 7 Laboratory test finding 08/04/2015 Lyme Disease Serology Negative Negative 8 Creatinine 07/24/2015 Creatinine 0.96 mg/dL High 0.51-0.95 Egfr Non- 59.1 >60 Egfr 76.0 >60 9 Laboratory test finding 07/24/2015 Blood Urea Nitrogen BUN 14 mg/dL 6-24 10 1 Because ethnic data is not always readily available, this report includes an eGFR for both -Americans and non- Americans. The National Kidney Disease Education Program (NKDEP) does not endorse the use of the MDRD equation for patients that are not between the ages of 18 and 70, are , have extremes of body size, muscle mass, or nutritional status, or are non- or non-. According to the National Kidney Foundation, irrespective of diagnosis, the stage of the disease is based on the level of kidney function: Stage Description GFR(mL/min/1.73 m(2)) 1 Kidney damage with normal or decreased GFR 90 2 Kidney damage with mild decrease in GFR 60-89 3 Moderate decrease in GFR 30-59 4 Severe decrease in GFR 15-29 5 Kidney failure <15 (or dialysis) 2 Because ethnic data is not always readily available, this report includes an eGFR for both -Americans and non- Americans. The National Kidney Disease Education Program (NKDEP) does not endorse the use of the MDRD equation for patients that are not between the ages of 18 and 70, are , have extremes of body size, muscle mass, or nutritional status, or are non- or non-. According to the National Kidney Foundation, irrespective of diagnosis, the stage of the disease is based on the level of kidney function: Stage Description GFR(mL/min/1.73 m(2)) 1 Kidney damage with normal or decreased GFR 90 2 Kidney damage with mild decrease in GFR 60-89 3 Moderate decrease in GFR 30-59 4 Severe decrease in GFR 15-29 5 Kidney failure <15 (or dialysis) 3 Copy Result to: JAKUB JANE ([id number]) 4 REFERENCE VALUE <=1.0 (Negative) 5 REFERENCE VALUE <20.0 (Negative) 6 Tests for antibodies to dsDNA and BLAIRE antigens are not performed automatically unless the NEELAM result is > or= 3.0 U. Studies performed at [facility] indicate that positive NEELAM results <3.0 U are rarely accompanied by positive second order tests. Test Performed by: [place] [address] Commercial Specialist: Gonzalo Escalante II, M.D., Ph.D. 7 RESULT: No apparent monoclonal protein on serum electrophoresis. Test Performed by: [place] [address] Commercial Specialist: oGnzalo Escalante II, M.D., Ph.D. 8 Serologic response to B. burgdorferi infection is not detected, but cannot rule out early infection during which low or undetectable antibody levels to B. burgdorferi may be present. If clinically indicated, a new serum specimen should be submitted in 7-14 days. Test Performed by: [place] [address] Commercial Specialist: Gonzalo Escalante II, M.D., Ph.D. 9 Because ethnic data is not always readily available, this report includes an eGFR for both -Americans and non- Americans. The National Kidney Disease Education Program (NKDEP) does not endorse the use of the MDRD equation for patients that are not between the ages of 18 and 70, are , have extremes of body size, muscle mass, or nutritional status, or are non- or non-. According to the National Kidney Foundation, irrespective of diagnosis, the stage of the disease is based on the level of kidney function: Stage Description GFR(mL/min/1.73 m(2)) 1 Kidney damage with normal or decreased GFR 90 2 Kidney damage with mild decrease in GFR 60-89 3 Moderate decrease in GFR 30-59 4 Severe decrease in GFR 15-29 5 Kidney failure <15 (or dialysis) 10 prior to MRI Copy Result to: JAKUB JANE ([id number]) Procedures Date CPT Code Description Status 06/01/2017 79247 EKG Tracing & Interpretation Completed 05/30/2017 67935 Holter Monitor Review (24 hr)dr review & interp only Completed 05/27/2017 56155 ECG Monitor/Recording W/Visual Superimposition Scanning Completed 04/20/2017 83945 ECHO Transthoracic, Real-Time 2D With Doppler And Color Completed Flow 04/20/2017 71481 ECHO Transthoracic, Real-Time 2D With Doppler And Color Completed Flow 03/21/2017 39577 Stress Test Completed 03/21/2017 67271 Myocardial Perfusion Imaging Tomographic (Spect) Completed Multiple Studies 03/07/2017 60021 ECHO Stress Test Incl Perf Contiuous ekg Monitoring Completed W/Phys Superv 12/26/2015 43203 Ultrasound Guidance For Vascular Access Completed 12/26/2015 26149 Revascularization,Endovascular,Transluminal Angioplasty Completed 09/10/2015 00810 Revascularization,Endovascular,Open/Percutaneous,Iliac Completed Artery 09/10/2015 53955 Revascularization,Endovascular,Addtl Ipsilateral Iliac Completed Vessel 09/10/2015 26631 Ultrasound Guidance For Vascular Access Completed 07/24/2015 58511 Nerve Conduction 03-04 Studies Completed 07/24/2015 38759 Needle Electromyography Complete, Five Or More Muscles Completed Studied 05/12/2015 47676 EKG Tracing & Interpretation Completed 04/29/2015 61315 Carotid Doppler,Bilateral Completed 04/23/2015 09222 ECHO Transthoracic, Real-Time 2D With Doppler And Color Completed Flow 06/06/2014 Mammogram Completed 04/22/2014 54555 ECHO Stress Test Incl Perf Contiuous ekg Monitoring Completed W/Phys Superv 04/09/2014 06956 Carotid Doppler,Bilateral Completed 04/03/2014 23436 ECHO Transthoracic, Real-Time 2D With Doppler And Color Completed Flow 04/01/2014 34192 EKG Tracing & Interpretation Completed Encounters Type Date Location Provider CPT E/M Dx Office Visit 06/01/2017 [facility] Mahesh Guevara, [address]355 R00.2 11:30a Rai Srinivasan, FACC, FASNC F17.210 Office Visit 01/19/2017 2:00p [facility] Pj Mayen, 72827 I70.212 Of Rai Srinivasan I49.9 R10.2 Office Visit 07/28/2016 2:00p [facility] Pj Mayen, 03626 I73.9 Of Rai Srinivasan R10.2 Office Visit 04/07/2016 1:45p [facility] Naman Salazar, 96683 R10.2 M.Uzma Office Visit 01/08/2016 1:30p [facility] Pj Mayen, 63037 I73.9 Rai Srinivasan R10.84 I70.92 Office Visit 11/27/2015 2:30p [facility] Pj Mayen, 79619 I73.9 Of Rai Srinivasan R10.2 Office Visit 09/25/2015 1:00p [facility] Pj Mayen 85568 R10.2 Of Rai Srinivasan I73.9 R10.84 Office Visit 09/11/2015 3:09p [facility] Pj Mayen, 65087 I70.212 Of Rai Srinivasan I70.92 R10.2 Office Visit 08/19/2015 10:15a Rajeev/Sam Hurtado, 48975 R10.2 [facility] Of Rai Srinivasan Office Visit 07/24/2015 8:30a [facility] Rosmery Hurtado, 16349 R10.2 Services Of Rai Srinivasan G57.22 Office Visit 07/10/2015 3:30p [facility] Pj Mayen, 20370 R10.2 Of Rai Srinivasan I73.9 Office Visit 05/23/2015 11:00a [facility] Rosmery Hurtado, 95132 M54.32 M.Uzma M54.5 M25.552 Office Visit 05/12/2015 10:30a [facility] Tamayo Guevara, 71797 I35.0 Rai Srinivasan, [facility] Office Visit 04/29/2014 12:00p [facility] Tamayo Guevara, 07093 433.10 Rai Srinivasan, [facility] Office Visit 04/01/2014 9:30a [facility], [address] 786.50 Rai Srinivasan, [facility] Plan of Care 01/25/2018 - Pj Mayen M.D.I70.212 Athscl campo arteries of extrm w intrmt mayur, left legComments:The following was discussed with Marilyn at the time of her clinic follow-up.Fabby continues to enjoy resolution of the left leg claudication pain she had prior to her revascularization and angioplasty of her occluded left superficial femoral artery. 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 As I have very times before,I emphasized the relationship between her vascular disease and cigarette smoking. I once again haveencouraged her to commit to quit smoking.Follow up:Routine annual follow-up to be scheduled January 2019 immediately proceeded by follow-up DAWN. The patient was advised that if her claudication pain returns and/or worsens she is strongly encouraged tocontact interventional radiology before her routine follow-up.R10.2 Pelvic and perineal pain
[2018-02-23 18:20] VITALS: BP 111/62
--- NOTE | 2018-02-23 18:48 | UC ---
Respiratory Complaint HPI - HPI Summary HPI Summary: COUGH intermittent x 3 wks. Has COPD but does not use any inhalers. - History of Current Complaint Chief Complaint: UCRespiratory Stated Complaint: COUGH,CONGESTED Time Seen by Provider: 02/23/18 18:13 Hx Obtained From: Patient ?: No Onset/Duration: Gradual Onset Pain Intensity: 5 Pain Scale Used: 0-10 Numeric Character: Cough: Productive, Sputum Description: - brown Alleviating Factors: Other - HAS NOT USED ANYTHING Associated Signs And Symptoms: Positive: URI. Negative: Dyspnea, Wheezing, Hemoptysis, Dizziness, Calf Pain - Allergies/Home Medications Allergies/Adverse Reactions: Allergies Allergy/AdvReac Type Severity Reaction Status Date / Time erythromycin base Allergy Mild Rash Verified 02/23/18 18:20 Iodine and Iodide Containing Allergy Mild Palpitation Verified 02/23/18 18:20 Produc s nicotine Allergy Mild Rash Verified 02/23/18 18:20 Penicillins Allergy Mild Rash Verified 02/23/18 18:20 rabeprazole [From Aciphex] Allergy Mild Rash Verified 02/23/18 18:20 Sulfa (Sulfonamide Allergy Rash Verified 02/23/18 18:20 Antibiotics) PMH/Surg Hx/FS Hx/Imm Hx Previously Healthy: No - uri 3 wks ago Respiratory History: COPD - Surgical History Surgical History: Yes Surgery Procedure, Year, and Place: Bilateral oopherectomy 2011; tubal ligation 1980; laparoscopy 2014 to explore patients pelvic symptoms--found adhesions with her bowel, surgery done to correct. peripheral vascular surgery L leg - 2014 - Family History Known Family History: Positive: Hypertension, Other - Aneurysm - Social History Alcohol Use: None Substance Use Type: None Substance Use Comment - Amount & Last Used: oxycodone Smoking Status (MU): Current Every Day Smoker Type: Cigarettes Amount Used/How Often: 1/2 PPD - Immunization History Most Recent Influenza Vaccination: 2017 Review of Systems All Other Systems Reviewed And Are Negative: Yes Constitutional: Positive: Negative. Negative: Fever, Chills Skin: Positive: Negative ENT: Positive: Negative Respiratory: Positive: Cough. Negative: Shortness Of Breath Cardiovascular: Positive: Negative Neurological: Positive: Negative Physical Exam Triage Information Reviewed: Yes Appearance: Well-Appearing Vital Signs: Initial Vital Signs Temp 97.6 F 02/23/18 18:16 Pulse 79 02/23/18 18:16 Resp 16 02/23/18 18:16 BP 111/62 02/23/18 18:16 Pulse Ox 97 02/23/18 18:16 Vital Signs Reviewed: Yes Dental Exam: Other - +POOR DENTITION Neck: Positive: No Lymphadenopathy Respiratory: Positive: Lungs clear, No respiratory distress, No accessory muscle use Cardiovascular Exam: Normal Neurological: Positive: Alert Skin Exam: Normal UC Diagnostic Evaluation - Laboratory O2 Sat by Pulse Oximetry: 97 Respiratory Course/Dx - Course Course Of Treatment: Three week intermittent cough in a smoker w/ no resp distress. Has KNOWN copd based on records. CXR neg. for pneumonia. not on any inhalers on a regular basis. plan is to SEND PT HOME W/ ALBUTEROL TO BE USED PRN. she will f/u w/ pcp about copd maintenance. - Differential Dx/Diagnosis Differential Diagnosis/HQI/PQRI: Exacerbation Of COPD, Lower Resp Infection, Sinusitis Provider Diagnoses: MILD COPD EXACERBATION Discharge - Sign-Out/Discharge Documenting (check all that apply): Patient Departure All imaging exams completed and their final reports reviewed: No - Discharge Plan Condition: Good Disposition: HOME Patient Education Materials: COPD (Chronic Obstructive Pulmonary Disease) (ED) Referrals: Haydee Thompson MD [Primary Care Provider] - - Billing Disposition and Condition Condition: GOOD Disposition: Home
[2018-02-23] MEDS ORDERED: Albuterol HFA INHALER* 8 gm MDI INH ONE (18:56)
[2018-02-23] MEDS ORDERED: Albuterol HFA INHALER* 8 gm MDI INH SCH (20:00)
--- NOTE | 2018-02-24 08:23 | UC ---
- Progress Note Progress Note: No management change ljj 02/24/18 Patient Name: GELY HOUSE Medical Record#: [id number] Ordering Physician: Mellisa INMAN Acct.#: [id number] : 1955 Age: 62 Sex: F Location: [facility] Exam Date: 02/23/18 1851 ADM Status: DEP ER Order Information: CHEST PA & LAT 2 VWS Accession Number: [id number] CPT: 97075 HISTORY: cough for 3 wks in a smoker COMPARISONS: February 26, 2017 VIEWS: 4: Frontal dual-energy and lateral views of the chest. FINDINGS: CARDIOMEDIASTINAL SILHOUETTE: The cardiomediastinal silhouette is normal. ROSALEE: The rosalee are normal. PLEURA: The costophrenic angles are sharp. No pleural abnormalities are noted. LUNG PARENCHYMA: There is hyperinflation with flattening of the diaphragm and expansion of the AP diameter of the chest. ABDOMEN: The upper abdomen is clear. There is no subphrenic gas. BONES AND SOFT TISSUES: No bone or soft tissue abnormalities are noted. OTHER: None. IMPRESSION: HYPERINFLATION, CONSISTENT WITH COPD. NO ACTIVE CARDIOPULMONARY DISEASE. R1NF Preliminary Imaging Read NO PRELIMINARY - NO FINDINGS <Electronically signed by Lc Mesa MD in OV> 02/24/1843 Dictated By: Lc Mesa MD Dictated Date/Time: 02/24/18742 Transcribed Date/Time: 02/24/18741 Copy to: CC:Haydee Thompson MD; Mellisa INMAN; Gonzalo Rooney MD Imaging - [facility] - [place] [facility] [address] [address] ph [phone]) ph ([phone]) ph ([phone]) This report is only to be considered final once signed by the Provider(s) as displayed in the "<Electronically Signed by >" field (s). Absence of a signature indicates the report is in a draft status and still needs to be finalized. In the event this document was created by someone other than the signing Provider, the individual initiating the document will be listed in the "Entered by:" or "Dictated by:" banda. 1 of 2 Discharge - Sign-Out/Discharge Documenting (check all that apply): Post-Discharge Follow Up All imaging exams completed and their final reports reviewed: Yes - Discharge Plan Condition: Good Disposition: HOME Patient Education Materials: COPD (Chronic Obstructive Pulmonary Disease) (ED) Referrals: Haydee Thompson MD [Primary Care Provider] - - Billing Disposition and Condition Condition: GOOD Disposition: Home
== END 2018-02-23 20:10 | disposition home or self-care (01) ==
LOC: UCEAST 17:46
DX: J44.1 Chronic obstructive pulmonary disease with (acute) exacerbation (principal); F17.210 Nicotine dependence, cigarettes, uncomplicated; Z88.1 Allergy status to other antibiotic agents; Z88.8 Allergy status to other drugs, medicaments and biological substances; Z88.0 Allergy status to penicillin; Z88.2 Allergy status to sulfonamides; Z91.048 Other nonmedicinal substance allergy status
CPT/HCPCS: 71046; 99212; A9270-GY; G0463

== ENCOUNTER 2018-05-06 15:59 | Emergency (ER) | payer BC ==
[2018-05-06 16:21] VITALS: BP 118/80
--- NOTE | 2018-05-06 17:28 | UC ---
Hip/Pelvis Pain - HPI Summary HPI Summary: patient fell several days ago and injured her left hip , since that time has has pain in the left hip, pelvis and down the left leg - History Of Current Complaint Chief Complaint: UCLowerExtremity Stated Complaint: HIP LEG PAIN FROM FALL Time Seen by Provider: 05/06/18 16:28 Hx Obtained From: Patient ?: No Onset/Duration: Sudden Onset Severity Initially: Moderate Severity Currently: Moderate Pain Intensity: 10 Character Of Pain: Sharp Aggravating Factor(s): Movement, Weight Bearing Alleviating Factor(s): Rest Associated Signs And Symptoms: Positive: Negative - Allergies/Home Medications Allergies/Adverse Reactions: Allergies Allergy/AdvReac Type Severity Reaction Status Date / Time erythromycin base Allergy Mild Rash Verified 05/06/18 16:22 Iodine and Iodide Containing Allergy Mild Palpitation Verified 05/06/18 16:22 Produc s nicotine Allergy Mild Rash Verified 05/06/18 16:22 Penicillins Allergy Mild Rash Verified 05/06/18 16:22 rabeprazole [From Aciphex] Allergy Mild Rash Verified 05/06/18 16:22 Sulfa (Sulfonamide Allergy Rash Verified 05/06/18 16:22 Antibiotics) Home Medications: Home Medications DULoxetine DR CAP* [Cymbalta CAP*] 20 mg PO BID 05/06/18 [History Confirmed ] QUEtiapine TAB* [Seroquel 100 MG *] 50 mg PO BEDTIME 05/06/18 [History Confirmed 05/06/18] PMH/Surg Hx/FS Hx/Imm Hx - Additional Past Medical History Additional PMH: hx. of anxiety and chronic pelvic pain for which she uses clonazepam and medical marijuana Previously Healthy: Yes Cardiovascular History: Other - peripheral vasular disease Psychological History: Anxiety - Surgical History Surgical History: Yes Surgery Procedure, Year, and Place: Bilateral oopherectomy 2011; tubal ligation 1980; laparoscopy 2014 to explore patients pelvic symptoms--found adhesions with her bowel, surgery done to correct. peripheral vascular surgery L leg - 2014 - Family History Known Family History: Positive: Hypertension, Other - Aneurysm - Social History Alcohol Use: None Substance Use Type: Marijuana Substance Use Comment - Amount & Last Used: oxycodone, medical marijuana Smoking Status (MU): Light Every Day Tobacco Smoker Type: Cigarettes Amount Used/How Often: 1/2 PPD - Immunization History Most Recent Influenza Vaccination: 2017 Review of Systems All Other Systems Reviewed And Are Negative: Yes Constitutional: Positive: Negative Skin: Positive: Negative Eyes: Positive: Negative ENT: Positive: Negative Respiratory: Positive: Negative Cardiovascular: Positive: Negative Gastrointestinal: Positive: Negative Genitourinary: Positive: Negative Motor: Positive: Other - pain on weight bearing on the left side Physical Exam Triage Information Reviewed: Yes Appearance: Ill-Appearing, Thin Vital Signs: Initial Vital Signs Temp 36.9 C 05/06/18 16:13 Pulse 88 05/06/18 16:13 Resp 16 05/06/18 16:13 BP 118/80 05/06/18 16:13 Pulse Ox 99 05/06/18 16:13 Eye Exam: Normal ENT Exam: Normal ENT: Positive: Normal ENT inspection Neck exam: Normal Pelvic Exam: Positive: External Exam Normal - tender left trochanteric bursa, Musculoskeletal Exam: Normal - no pain with internal external rotation of the hip Neurological Exam: Normal - normal strength and sensation, Hip Injury Course/Dx - Differential Dx/Diagnosis Provider Diagnosis: Trochanteric bursitis of left hip Discharge - Sign-Out/Discharge Documenting (check all that apply): Patient Departure All imaging exams completed and their final reports reviewed: Yes - Discharge Plan Condition: Fair Disposition: HOME Patient Education Materials: Hip Bursitis (ED) Referrals: Haydee Thompson MD [Primary Care Provider] - - Billing Disposition and Condition Condition: FAIR Disposition: Home
== END 2018-05-06 17:34 | disposition home or self-care (01) ==
LOC: UCEAST 15:59
DX: M70.62 Trochanteric bursitis, left hip (principal); F41.9 Anxiety disorder, unspecified; Z88.1 Allergy status to other antibiotic agents; Z88.0 Allergy status to penicillin; Z88.2 Allergy status to sulfonamides; F17.210 Nicotine dependence, cigarettes, uncomplicated
CPT/HCPCS: 99211; G0463

== ENCOUNTER 2018-05-23 19:43 | Emergency (ER) | payer BC ==
[2018-05-23 20:50] VITALS: BP 100/59
--- NOTE | 2018-05-23 21:06 | UC ---
UC General HPI - HPI Summary HPI Summary: pt c/o fever, chills, headache and bodyaches x 2 days. temp to 102. 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 + cough. - History of Current Complaint Chief Complaint: UCGeneralIllness Stated Complaint: FEVER Time Seen by Provider: 05/23/18 20:55 Hx Obtained From: Patient Pain Intensity: 6 Associated Signs & Symptoms: Negative: Chest Pain, Diarrhea, Vomiting - Allergy/Home Medications Allergies/Adverse Reactions: Allergies Allergy/AdvReac Type Severity Reaction Status Date / Time erythromycin base Allergy Mild Rash Verified 05/23/18 20:50 Iodine and Iodide Containing Allergy Mild Palpitation Verified 05/23/18 20:50 Produc s nicotine Allergy Mild Rash Verified 05/23/18 20:50 Penicillins Allergy Mild Rash Verified 05/23/18 20:50 rabeprazole [From Aciphex] Allergy Mild Rash Verified 05/23/18 20:50 Sulfa (Sulfonamide Allergy Rash Verified 05/23/18 20:50 Antibiotics) Home Medications: Home Medications Acetaminophen TAB* [Tylenol TAB*] 325 mg PO Q4H PRN 05/23/18 [History Confirmed 05/23/18] Ibuprofen TAB* [Advil TAB*] 200 mg PO Q8H PRN 05/23/18 [History Confirmed ] PMH/Surg Hx/FS Hx/Imm Hx Endocrine History: Dyslipidemia Psychological History: Depression - Surgical History Surgical History: Yes Surgery Procedure, Year, and Place: Bilateral oopherectomy 2011; tubal ligation 1980; laparoscopy 2014 to explore patients pelvic symptoms--found adhesions with her bowel, surgery done to correct. peripheral vascular surgery L leg - 2014 - Family History Known Family History: Positive: Hypertension, Other - Aneurysm - Social History Alcohol Use: None Substance Use Type: Marijuana Substance Use Comment - Amount & Last Used: oxycodone, medical marijuana Smoking Status (MU): Light Every Day Tobacco Smoker Type: Cigarettes Amount Used/How Often: 1/2 PPD - Immunization History Most Recent Influenza Vaccination: 2017 Review of Systems All Other Systems Reviewed And Are Negative: Yes Constitutional: Positive: Fever, Chills Skin: Positive: Negative Eyes: Positive: Negative ENT: Positive: Negative Respiratory: Positive: Cough Cardiovascular: Positive: Negative Gastrointestinal: Positive: Negative Genitourinary: Positive: Negative Motor: Positive: Negative Neurovascular: Positive: Negative Musculoskeletal: Positive: Myalgia Neurological: Positive: Negative Psychological: Positive: Negative Is Patient Immunocompromised?: No Physical Exam Triage Information Reviewed: Yes Appearance: Well-Appearing Vital Signs: Initial Vital Signs Temp 98.3 F 05/23/18 20:46 Pulse 91 05/23/18 20:46 Resp 16 05/23/18 20:46 BP 100/59 05/23/18 20:46 Pulse Ox 97 05/23/18 20:46 Vital Signs Reviewed: Yes Eyes: Positive: Conjunctiva Clear ENT: Positive: Pharynx normal, TMs normal. Negative: Nasal congestion, Nasal drainage Neck: Positive: Supple, Nontender, No Lymphadenopathy Respiratory: Positive: No respiratory distress, Decreased breath sounds Cardiovascular: Positive: RRR, No Murmur Abdomen Description: Positive: Nontender, No Organomegaly, Soft Bowel Sounds: Positive: Present Musculoskeletal: Positive: ROM Intact Neurological: Positive: Alert Psychological: Positive: Age Appropriate Behavior Skin Exam: Normal Diagnostics - Laboratory Diagnostic Studies Completed/Ordered: rapid flu=neg. - Radiology No standard instances Radiology Interpretation Completed By: ED Physician - wet read=nad Course/Dx - Course Course Of Treatment: rapid flu=negative. CXR=no overt infiltrate. Tmax 102 and pt has cough thus will cover for presumptive bacterial infection. - Differential Dx - Multi-Symptom Differential Diagnoses: Other - influenza/viral syndrom, pneumonia. no concern for seratonin syndrom. - Diagnoses Provider Diagnosis: Fever, Cough Discharge - Sign-Out/Discharge Documenting (check all that apply): Patient Departure All imaging exams completed and their final reports reviewed: No Studies - Discharge Plan Condition: Stable Disposition: HOME Prescriptions: DOXYcycline CAP(*) [DOXYcycline 100MG CAP(*)] 100 mg PO BID 7 Days #14 cap Patient Education Materials: Fever in Adults (ED) Referrals: Haydee Thompson MD [Primary Care Provider] - 7 Days - Billing Disposition and Condition Condition: STABLE Disposition: Home - Attestation Statements Provider Attestation: I was available for consult. This patient was seen by the MARYSOL. The patient was not presented to, seen by, or examined by me. -Terell
[2018-05-23 21:14] LABS: Influenza A Molecular NEGATIVE (Negative); Influenza B Molecular NEGATIVE (Negative)
[2018-05-23] MEDS ORDERED: DOXYcycline CAP(*) 100 MG PO ONE (21:42)
== END 2018-05-23 21:51 | disposition home or self-care (01) ==
LOC: UCCORT 19:43
DX: R50.9 Fever, unspecified (principal); R05 Cough; M79.10 Myalgia, unspecified site; F17.210 Nicotine dependence, cigarettes, uncomplicated; Z88.0 Allergy status to penicillin; Z88.2 Allergy status to sulfonamides; Z88.1 Allergy status to other antibiotic agents; Z88.8 Allergy status to other drugs, medicaments and biological substances
CPT/HCPCS: 71046; 99212; A9270-GY; G0463

== ENCOUNTER 2018-05-27 22:47 | Emergency (ER) | payer BC ==
[2018-05-27] MEDS ORDERED: hydrOXYzine HCL TAB* 50 MG PO ONE (23:52)
[2018-05-27] MEDS ORDERED: predniSONE TAB* 20 MG PO ONE (23:52)
[2018-05-27] MEDS ORDERED: Famotidine TAB* 20 MG PO ONE (23:53)
--- NOTE | 2018-05-28 00:07 | ED ---
Allergic Reaction/Systemic - HPI Summary HPI Summary: This patient is a 62 year old F presenting to [facility] accompanied by a woman with a chief complaint of allergic reaction since Tuesday. The patient rates the pain 6/10 in severity. Patient reports diffuse rash, fever, and diffuse myalgia. The patient was seen at [facility] in [place] 3 days ago, they did a swab test for the flu and it was negative. She was given the antibiotic, doxycycline, just in case it turned into Bronchitis. The antibiotic caused her rash to start, and she says it keeps getting worse. She stopped taking the antibiotic on day 2, per MD recommendations. She has taken Benadryl and Zyrtec for the allergy symptoms but they have not helps. - History of Current Complaint Chief Complaint: EDAllergicReaction Time Seen by Provider: 05/27/18 23:43 Hx Obtained From: Patient Onset/Duration: Gradual Onset Timing: Constant Severity Initially: Mild Severity Currently: Moderate Pain Intensity: 6 Pain Scale Used: 0-10 Numeric Location: Diffuse Character: Hives Associated Signs And Symptoms: Positive: Rash - Related Hx Possible Reaction To: Medications - doxycycline - Allergies/Home Medications Allergies/Adverse Reactions: Allergies Allergy/AdvReac Type Severity Reaction Status Date / Time erythromycin base Allergy Mild Rash Verified 05/27/18 22:54 Iodine and Iodide Containing Allergy Mild Palpitation Verified 05/27/18 22:54 Produc s nicotine Allergy Mild Rash Verified 05/27/18 22:54 Penicillins Allergy Mild Rash Verified 05/27/18 22:54 rabeprazole [From Aciphex] Allergy Mild Rash Verified 05/27/18 22:54 Sulfa (Sulfonamide Allergy Rash Verified 05/27/18 22:54 Antibiotics) PMH/Surg Hx/FS Hx/Imm Hx Endocrine/Hematology History: Denies: Hx Diabetes, Hx Systemic Lupus Erythematosus Cardiovascular History: Reports: Hx Hypercholesterolemia, Other Cardiovascular Problems/Disorders - MURMUR Denies: Hx Congestive Heart Failure, Hx Hypertension, Hx Pacemaker/ICD Respiratory History: Reports: Hx Chronic Obstructive Pulmonary Disease (COPD) Denies: Hx Asthma History: Denies: Hx Dialysis, Hx Renal Disease Musculoskeletal History: Denies: Hx Rheumatoid Arthritis Sensory History: Denies: Hx Hearing Aid Psychiatric History: Reports: Hx Anxiety, Hx Depression, Hx Panic Disorder - ANXIETY/DEPRESSION - Cancer History Hx Chemotherapy: No - Surgical History Surgery Procedure, Year, and Place: Bilateral oopherectomy 2011; tubal ligation 1980; laparoscopy 2014 to explore patients pelvic symptoms--found adhesions with her bowel, surgery done to correct. peripheral vascular surgery L leg - 2014 Infectious Disease History: No Infectious Disease History: Denies: Hx Shingles, Traveled Outside the [place] in Last 30 Days - Family History Known Family History: Positive: Hypertension, Other - Aneurysm - Social History Alcohol Use: None Hx Substance Use: No Substance Use Type: Reports: Marijuana Substance Use Comment - Amount & Last Used: oxycodone, medical marijuana Hx Tobacco Use: Yes Smoking Status (MU): Light Every Day Tobacco Smoker Type: Cigarettes Amount Used/How Often: 1/2 PPD Review of Systems Positive: Fever Positive: Myalgia - diffuse Positive: Rash - diffuse hives All Other Systems Reviewed And Are Negative: Yes Physical Exam - Summary Physical Exam Summary: VITAL SIGNS: Reviewed. GENERAL: Patient is a well-developed and nourished female who is lying comfortable in the stretcher. Patient is not in any acute respiratory distress. HEAD AND FACE: No signs of trauma. No ecchymosis, hematomas or skull depressions. No sinus tenderness. EYES: PERRLA, EOMI x 2, No injected conjunctiva, no nystagmus. EARS: Hearing grossly intact. Ear canals and tympanic membranes are within normal limits. MOUTH: Oropharynx within normal limits. NECK: Supple, trachea is midline, no adenopathy, no JVD, no carotid bruit, no c- spine tenderness, neck with full ROM. CHEST: Symmetric, no tenderness at palpation LUNGS: Clear to auscultation bilaterally. No wheezing or crackles. CVS: Regular rate and rhythm, S1 and S2 present, no murmurs or gallops appreciated. ABDOMEN: Soft, non-tender. No signs of distention. No rebound no guarding, and no masses palpated. Bowel sounds are normal. EXTREMITIES: FROM in all major joints, no edema, no cyanosis or clubbing. NEURO: Alert and oriented x 3. No acute neurological deficits. Speech is normal and follows commands. SKIN: Dry and warm. Diffuse maculopapular rash. GCS: 15 Triage Information Reviewed: Yes Vital Signs On Initial Exam: Initial Vitals Temp Pulse Resp BP Pulse Ox 97.0 F 90 16 126/76 96 05/27/18 22:50 05/27/18 22:50 02/09/19 22:50 05/27/18 22:50 05/27/18 22:50 Vital Signs Reviewed: Yes Diagnostics - Vital Signs Vital Signs Temp Pulse Resp BP Pulse Ox 05/27/18 22:50 97.0 F 90 16 126/76 96 - Laboratory Lab Statement: Any lab studies that have been ordered have been reviewed, and results considered in the medical decision making process. Allergic Reaction Course/Dx - Course Course Of Treatment: This patient is a 62 year old F presenting to [facility] accompanied by a woman with a chief complaint of allergic reaction since Tuesday. The patient rates the pain 6/10 in severity. Patient reports diffuse rash, fever, and diffuse myalgia. In the ED course the patient was given Famotidine, Hydroxyzine, and Prednisone. Patient will be discharged with prescription for Hydroxyzine and Prednisone follow up from Dr. Thompson. The patient is agreeable with this plan. - Diagnoses Provider Diagnoses: Allergic reaction Discharge - Sign-Out/Discharge Documenting (check all that apply): Patient Departure - discharge Patient Received Moderate/Deep Sedation with Procedure: No - Discharge Plan Condition: Stable Disposition: HOME Prescriptions: hydrOXYzine HCL TAB* [Atarax 25 MG TAB*] 25 mg PO QID PRN #20 tab PRN Reason: Itching predniSONE TAB* [Deltasone TAB*] 50 mg PO DAILY #5 tab Patient Education Materials: Antibiotic Medication Allergy (ED) Referrals: Haydee Thmopson MD [Primary Care Provider] - 2 Days Additional Instructions: Follow up with your primary care physician in 1-3 days. RETURN TO THE EMERGENCY DEPARTMENT FOR CHANGING OR WORSENING SYMPTOMS. - Billing Disposition and Condition Condition: STABLE Disposition: Home - Attestation Statements Document Initiated by Reneeibe: Yes Documenting Scribe: Albino Jon Provider For Whom Kyler is Documenting (Include Credential): Gayla Nur MD Scribe Attestation: Albino Leon scribed for Gayla Nur MD on 05/28/18 at 2120. Scribe Documentation Reviewed: Yes Provider Attestation: The documentation as recorded by the Albino huber accurately reflects the service I personally performed and the decisions made by me, Gayla Nur MD Status of Scribe Document: Viewed
[2018-05-28 01:15] VITALS: BP 121/73
== END 2018-05-28 01:14 | disposition home or self-care (01) ==
LOC: ED 22:47
DX: T78.40XA Allergy, unspecified, initial encounter (principal); R21 Rash and other nonspecific skin eruption; L50.9 Urticaria, unspecified; Z88.0 Allergy status to penicillin; Z88.2 Allergy status to sulfonamides; F17.210 Nicotine dependence, cigarettes, uncomplicated
CPT/HCPCS: 99282; A9270-GY; J7512

== ENCOUNTER 2018-08-22 16:47 | Emergency (ER) | payer BC ==
[2018-08-22 17:51] VITALS: BP 142/79
--- NOTE | 2018-08-22 18:18 | UC ---
General HPI - HPI Summary HPI Summary: Pt has two c/o at time of visit. 1. Pt has "sore" on top of forehead. She is unsure of how the sore occurred and is concerned that wound is getting more sore , red, and swollen. 2. Pt c/o sudden onset of abdominal discomfort and diarrhea. Pt had three episodes of diarrhea today. Pt states she stopped taking lamictal " a few days ago". Pt has not taken any antibiotics in the last 4 weeks. - History of Current Complaint Chief Complaint: [place] Stated Complaint: SKIN CONCERN, DIARRHEA Time Seen by Provider: 08/22/18 18:07 Hx Obtained From: Patient Onset/Duration: Sudden Onset - diarrhea, Gradual Onset - sore on forehead Timing: Constant Onset Severity: Mild Current Severity: Mild Pain Intensity: 4 Associated Signs & Symptoms: Positive: Diarrhea - Allergy/Home Medications Allergies/Adverse Reactions: Allergies Allergy/AdvReac Type Severity Reaction Status Date / Time erythromycin base Allergy Mild Rash Verified 08/22/18 17:52 Iodine and Iodide Containing Allergy Mild Palpitation Verified 08/22/18 17:52 Produc s nicotine Allergy Mild Rash Verified 08/22/18 17:52 Penicillins Allergy Mild Rash Verified 08/22/18 17:52 rabeprazole [From Aciphex] Allergy Mild Rash Verified 08/22/18 17:52 Sulfa (Sulfonamide Allergy Rash Verified 08/22/18 17:52 Antibiotics) PMH/Surg Hx/FS Hx/Imm Hx Previously Healthy: Yes Cardiovascular History: Cardiac Disease Psychological History: Anxiety - Surgical History Surgical History: Yes Surgery Procedure, Year, and Place: Bilateral oopherectomy 2011; tubal ligation 1980; laparoscopy 2014 to explore patients pelvic symptoms--found adhesions with her bowel, surgery done to correct. peripheral vascular surgery L leg - 2014 - Family History Known Family History: Positive: Hypertension, Other - Aneurysm - Social History Occupation: Employed Full-time Lives: With Family Alcohol Use: None Substance Use Type: None Substance Use Comment - Amount & Last Used: oxycodone, medical marijuana Smoking Status (MU): Light Every Day Tobacco Smoker Type: Cigarettes Amount Used/How Often: 1/2 PPD Have You Smoked in the Last Year: Yes - Immunization History Most Recent Influenza Vaccination: 2017 Review of Systems All Other Systems Reviewed And Are Negative: Yes Constitutional: Positive: Negative Skin: Positive: Other - wound on center of forehead Eyes: Positive: Negative ENT: Positive: Negative Respiratory: Positive: Negative Cardiovascular: Positive: Negative Gastrointestinal: Positive: Abdominal Pain - generalized tenderness, Diarrhea - three episode today Physical Exam Vital Signs: Initial Vital Signs Temp 97.8 F 08/22/18 17:42 Pulse 71 08/22/18 17:42 Resp 16 08/22/18 17:42 BP 142/79 08/22/18 17:42 Pulse Ox 99 08/22/18 17:42 Course/Dx - Diagnoses Provider Diagnosis: Abdominal pain, Wound infection, Diarrhea Discharge - Sign-Out/Discharge Documenting (check all that apply): Patient Departure All imaging exams completed and their final reports reviewed: No Studies - Discharge Plan Condition: Stable Disposition: HOME Prescriptions: Mupirocin 2% OINT* [Bactroban 2 % Oint*] 1 applic TOPICAL Q12H #1 tube Patient Education Materials: Loperamide (By mouth), Wound Infection (ED), Acute Wound Care (ED), Acute Diarrhea (ED) Referrals: Haydee Thompson MD [Primary Care Provider] - As Soon As Possible - Billing Disposition and Condition Condition: STABLE Disposition: Home
== END 2018-08-22 18:26 | disposition home or self-care (01) ==
LOC: UCCORT 16:47
DX: L08.89 Other specified local infections of the skin and subcutaneous tissue (principal); R10.9 Unspecified abdominal pain; R19.7 Diarrhea, unspecified; Z88.1 Allergy status to other antibiotic agents; Z88.0 Allergy status to penicillin; Z88.2 Allergy status to sulfonamides; Z88.8 Allergy status to other drugs, medicaments and biological substances; I51.9 Heart disease, unspecified; F41.9 Anxiety disorder, unspecified; F17.210 Nicotine dependence, cigarettes, uncomplicated
CPT/HCPCS: 99212; G0463

== ENCOUNTER 2018-11-24 08:53 | Emergency (ER) | payer BC ==
--- OUTSIDE RECORDS SUMMARY | 2018-11-24 09:02 | XMS REPORT | Continuity of Care Document ---
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 [phone] Problems Active Problems Provider Date Generalized anxiety disorder Mati Warren MD Onset: 07/16/2011 Gastroesophageal reflux disease Mati Warren MD Onset: 07/16/2011 Pure hypercholesterolemia Onset: 03/26/2015 Diarrhea Sindy Benites PA-C Onset: 11/28/2017 Generalized abdominal pain Sindy Benites PA-C Onset: 11/28/2017 Social History Type Date Description Comments Sex Unknown ETOH Use Denies alcohol use Tobacco Use Start: Unknown Light tobacco smoker (10 or fewer cigarettes/day) Smoking Status Reviewed: 10/23/18 Light tobacco smoker (10 or fewer cigarettes/day) Allergies, Adverse Reactions, Alerts Active Allergies Reaction Severity Comments Date Penicillin 07/16/2011 Sulfa Antibiotics 07/16/2011 Erythromycin 09/09/2016 Medications Active Medications SIG Qnty Indications Ordering Provider Date Hyoscyamine Sulfate 1 tablet by mouth 60tabs R10.84 Sindy Prasad 11/28/2017 every four hours DARSHAN Benites 0.125mg Tablets as needed for abdominal cramps/pain Lipitor Mati Warren 07/16/2011 40mg Tablets Aspir-Low 1 by mouth every Unknown 81mg day Tablets Vitamin B-12 1 by mouth every Unknown 500mcg day Tablets Sub Vitamin D-3 once a day Unknown 2000Unit Capsules Clonazepam tid Unknown 0.5mg Tablets Dispers Duloxetine HCL Daily Unknown 30mg Caps DR Dillon Quetiapine Fumarate 1/2 tablets by Unknown mouth every night 50mg Tablets for sleep History Medications Colyte With Flavor by mouth as 4000ml R19.7 Nathaniel ViridianaDO [place] 10/23/2018 - Packs directed 10/26/2018 240gm Solution Rec Immunizations Description No Information Available Vital Signs Date Vital Result Comment 10/23/2018 7:59am Height 64 inches 5'4" Weight 136.00 lb BMI (Body Mass Index) 23.3 kg/m2 11/28/2017 11:06am Height 64 inches 5'4" Weight 142.00 lb BMI (Body Mass Index) 24.4 kg/m2 Results Test Date Facility Test Result H/L Range Note Laboratory test 11/07/2018 [facility] [place] Clotest SEE RESULT 1, 2 finding BELOW Laboratory test 11/07/2018 [facility] Surgical SEE RESULT 3, 4 finding Pathology Order BELOW CBC Auto Diff 10/23/2018 [facility] [place] White Blood 6.7 10^3/uL Normal 3.5-10.8 Count Red Blood Count 5.35 10^6/uL High 3.70-4.87 Hemoglobin 16.2 g/dL High 12.0-16.0 Hematocrit 49 % High 35-47 Mean Corpuscular Volume 91 fL Normal 80-97 Mean Corpuscular Hemoglobin 30 pg Normal 27-31 Mean Corpuscular HGB Conc 33 g/dL Normal 31-36 Red Cell Distribution Width 15 % Normal 10-15 Platelet Count 225 10^3/uL Normal 150-450 Mean Platelet Volume 9.7 fL Normal 7.4-10.4 Abs Neutrophils 4.1 10^3/uL Normal 1.5-7.7 Abs Lymphocytes 1.8 10^3/uL Normal 1.0-4.8 Abs Monocytes 0.4 10^3/uL Normal 0-0.8 Abs Eosinophils 0.3 10^3/uL Normal 0-0.6 Abs Basophils 0.1 10^3/uL Normal 0-0.2 Abs Nucleated RBC 0.0 10^3/uL Granulocyte % 60.4 % Lymphocyte % 27.1 % Monocyte % 6.3 % Eosinophil % 5.1 % Basophil % 1.1 % Nucleated Red Blood Cells % 0.1 Laboratory test 10/23/2018 [facility] [place] Free T4 (Free 0.82 ng/dL Normal 0.61-1.12 5 finding Thyroxine) TSH (Thyroid Stim Horm) 0.80 mcIU/mL Normal 0.34-5.60 6 Xray 09/22/2018 [facility] [place] Radiology US, Abdomen, Complete <pending> ([id number]) Laboratory test 09/01/2018 [facility] Giardia & <pending> finding Cryptosporidium 1 [id number] 2 SEE RESULT BELOW Name: RUBY SUTTON Dee Dee : [address]: Nathaniel Kemp DO Acct: [id number] Unit: [id number] AGE: 63 Location: ENDOCEC Re11/07/18 SEX: F Status: DEP REF SPEC: [id number] DILMA: 11/07/18-1320 [facility] DR: Nathaniel Kemp DO REQ: [id number] RECD: 11/07/18-805 STATUS: HUMBERTO FINK DR: Katherine Flores MD _ SOURCE: GAS ANTRUM SPDESC: ORDERED: Clotest COMMENTS: [id number] Procedure Result Reported Site Clotest Final 11/08/18- 08 ML Clotest Negative * ML - Main Lab . END OF REPORT DEPARTMENT OF PATHOLOGY, [address] [place] [address] Ramírez Leory M.D. Director [facility] # [id number] 3 [id number] SEE RESULT BELOW Name: RUBY SUTTON : [address]: Nathaniel Kemp DO Acct: [id number] Unit: [id number] AGE: 63 Location: ENDOC Re11/07/18 SEX: F Status: DEP REF SPEC: [id number] DILMA: 11/07/18-1319 [facility] DR: Nathaniel Kemp DO REQ: [id number] RECD: 11/07/18-1550 STATUS: FIDELIA FINK DR: Katherine Flores MD _ ORDERED: LEVEL 4/5 COMMENTS: [id number] FINAL DIAGNOSIS 1. Small bowel, duodenum, biopsy: -- Small bowel mucosa with normal villous architecture and no significant pathologic abnormality. 2. Distal esophagus, biopsy: -- Squamous mucosa with mild nonspecific chronic inflammation and mild reactive squamous epithelial changes. -- No glandular component is identified. -- No specific features of reflux esophagitis is identified. 3. Esophagus, mid, biopsies: -- Superficial squamous mucosa with no significant pathologic abnormality. -- No evidence of allergic/eosinophilic esophagitis or reflux esophagitis identified. -- No glandular component is identified. 4. Colon, random biopsies: -- Findings compatible with mild microscopic/lymphocytic colitis. See comment. 5. Colon, sigmoid, biopsy: -- Sessile serrated adenomatous polyp (1). -- Hyperplastic polyps (3) -- No high-grade dysplasia or malignancy identified. Comment: The random colon biopsies in part 4 demonstrate variable but increased lamina propria lymphoplasmacytic infiltrates. The surface epithelium demonstrates significantly increased lymphocytes with scattered eosinophils, variable loss of goblet cells and increased surface epithelial apoptotic figures. Some increased lymphocytes are also seen in crypts. No active inflammation or significant architectural disorder is noted. No dysplasia CONTINUED ON NEXT PAGE DEPARTMENT OF PATHOLOGY, [address] [place] [address] Ramírez Leroy M.D. Director [facility] # [id number] RUN DATE: 11/08/18 [facility] LAB LIVE PAGE 2 Patient: RUBY SUTTON [id number] (Continued) SPECIMEN COMMENTS (Continued) is identified. The findings are characteristic of mild microscopic/lymphocytic colitis. Correlation with clinical and colonoscopic findings is recommended. CLINICAL HISTORY Dysphagia; diarrhea PRE-OPERATIVE DIAGNOSIS 1) Rule out celiac; 2-3) rule out eosinophilic esophagitis; 4) rule out microscopic colitis POST-OPERATIVE DIAGNOSIS EGD: esophagus - normal; biopsy mid and distal; gastric - scant antral gastritis; biopsy; duodenum - normal; biopsy; colonoscopy: to terminal ileum; good prep; biopsy microscopic; biopsy (3) polyps sigmoid GROSS DESCRIPTION 1. The specimen is received in formalin labeled, Biopsy Duodenum, and consists of two mandujano-pink irregular soft tissue fragments measuring 0.3 x 0.3 x 0.1 cm and 0.4 x 0.2 x 0.1 cm which are submitted entirely in one cassette. 2. The specimen is received in formalin labeled, Biopsy Distal Esophagus, and consists of a 0.4 x 0.3 x 0.1 cm aggregate of translucent mandujano-white to red irregular soft tissue fragments which is submitted entirely in one cassette. 3. The specimen is received in formalin labeled, Biopsy Mid Esophagus, and consists of two translucent mandujano-white irregular soft tissue fragments measuring 0.3 x 0.2 x 0.1 cm and 0.5 by up to 0.3 x 0.1 cm which are submitted entirely in one cassette. 4. The specimen is received in formalin labeled, Biopsy Random Colon, and consists of a 0.9 x 0.5 by up to 0.2 cm aggregate of mandujano-pink irregular soft tissue fragments which is submitted entirely in one cassette. 5. The specimen is received in formalin labeled, Biopsy Sigmoid Colon Polyps, and consists of a 0.6 x 0.5 x 0.1 cm aggregate of mandujano-pink irregular soft tissue fragments which is submitted entirely in one cassette. CONTINUED ON NEXT PAGE DEPARTMENT OF PATHOLOGY, [address] [place] [address] Ramírez Leroy M.D. Director [place] # [id number] RUN DATE: 11/08/18 [facility] LAB LIVE PAGE 3 Patient: RUBY SUTTON Dee Dee [id number] (Continued) GROSS DESCRIPTION (Continued) Signed by and Reported on: Ramírez Leroy MD 1549 END OF REPORT DEPARTMENT OF PATHOLOGY, [address] [place] [address] Ramírez Leroy M.D. Director [facility] # [id number] Procedures Description No Information Available Medical Devices Description No Information Available Encounters Type Date Location Provider Dx Diagnosis Office Visit 10/23/2018 Gastroenterology Nathaniel Kemp, R13.12 Dysphagia, 8:00a [facility] DO oropharyngeal phase R19.7 Diarrhea, unspecified R10.13 Epigastric pain F41.9 Anxiety disorder, unspecified Assessments Date Code Description Provider 10/23/2018 R13.12 Dysphagia, oropharyngeal phase Nathaniel Kemp, DO 10/23/2018 R19.7 Diarrhea, unspecified Nathaniel Kemp, DO 10/23/2018 R10.13 Epigastric pain Nathaniel Kemp, DO 10/23/2018 F41.9 Anxiety disorder, unspecified Nathaniel Kemp, DO Plan of Treatment 10/23/2018 - Nathaniel Kemp, DOR13.12 Dysphagia, oropharyngeal phaseComments: RISKS AND BENEFITS OF THE PROCEDURE WERE DISCUSSED WITH PATIENT.R19.7 Diarrhea, unspecifiedNew Medication:Colyte With Flavor Packs 240 gm - by mouth as directedComments:RISKS AND BENEFITS OF THE PROCEDURE WERE DISCUSSED WITH PATIENT.R10.13 Epigastric painF41.9 Anxiety disorder, unspecified Functional Status Description No Information Available Mental Status Description No Information Available Referrals Description No Information Available
[2018-11-24 09:13] VITALS: BP 115/73
--- NOTE | 2018-11-24 09:59 | UC ---
Asthma HPI - HPI Summary HPI Summary: RN notes - Since last Tuesday coughing up green mucous. The coughing is causing chest discomfort, back pain, headache, and yellow mucous from nose. Pt also has stomach pain and is being followed-endoscopy and colonoscopy last week. Pleasant female c/o progressive cough, worsening cough, with yellow green sputum over the last several days. No fever / chills. Has had weight loss over the last few months. Is in the process of GI w/u. No melena / brbpr currently. More concerned about cough. No rash. No issues. No h/a other than sinus congestion. No vis / aud issues. No st perse, but + cough. No rash. - History of Current Complaint Chief Complaint: UCGeneralIllness Stated Complaint: COUGH,CONGESTION Time Seen by Provider: 11/24/18 09:49 Hx Obtained From: Patient Pain Intensity: 8 - Allergy/Home Medications Allergies/Adverse Reactions: Allergies Allergy/AdvReac Type Severity Reaction Status Date / Time erythromycin base Allergy Mild Rash Verified 11/24/18 09:13 Iodine and Iodide Containing Allergy Mild Palpitation Verified 11/24/18 09:13 Produc s nicotine Allergy Mild Rash Verified 11/24/18 09:13 Penicillins Allergy Mild Rash Verified 11/24/18 09:13 rabeprazole [From Aciphex] Allergy Mild Rash Verified 11/24/18 09:13 Sulfa (Sulfonamide Allergy Rash Verified 11/24/18 09:13 Antibiotics) PMH/Surg Hx/FS Hx/Imm Hx Previously Healthy: No - see hpi and below - Surgical History Surgical History: Yes Surgery Procedure, Year, and Place: Bilateral oopherectomy 2011; tubal ligation 1980; laparoscopy 2014 to explore patients pelvic symptoms--found adhesions with her bowel, surgery done to correct. peripheral vascular surgery L leg - 2014 - Family History Known Family History: Positive: Hypertension, Other - Aneurysm - Social History Alcohol Use: None Substance Use Type: None Substance Use Comment - Amount & Last Used: oxycodone, medical marijuana Smoking Status (MU): Light Every Day Tobacco Smoker Type: Cigarettes Amount Used/How Often: 1/2 PPD Have You Smoked in the Last Year: Yes - Immunization History Most Recent Influenza Vaccination: 2017 Review of Systems All Other Systems Reviewed And Are Negative: Yes Constitutional: Positive: Fatigue Skin: Positive: Negative Eyes: Positive: Negative ENT: Positive: Other - see hpi Respiratory: Positive: Cough - see hpi no hemoptysis reported Cardiovascular: Positive: Other - see hpi Gastrointestinal: Positive: Other - see hpi Genitourinary: Positive: Other - see hpi Motor: Positive: Negative Neurovascular: Positive: Negative Musculoskeletal: Positive: Negative Neurological: Positive: Negative Psychological: Positive: Negative Is Patient Immunocompromised?: No Physical Exam Triage Information Reviewed: Yes Appearance: Thin, Other: - looks tired, but nad. nontoxic general appearance. Vital Signs: Initial Vital Signs Temp 98.7 F 11/24/18 09:07 Pulse 99 11/24/18 09:07 Resp 16 11/24/18 09:07 BP 115/73 11/24/18 09:07 Pulse Ox 99 11/24/18 09:07 Vital Signs Reviewed: Yes Eye Exam: Normal ENT: Positive: Pharyngeal erythema - mild post redness c/w cough, Nasal congestion, TM dull Neck exam: Other - + arthritic changes Neck: Positive: Nontender, No Lymphadenopathy Respiratory Exam: Other - + course bs with course cough. No distress + scattered rhonchi no rtx Respiratory: Positive: No respiratory distress, No accessory muscle use Cardiovascular: Positive: RRR, Pulses Normal, Brisk Capillary Refill Abdominal Exam: Other - thin soft + bs, nondistended nonacute Musculoskeletal Exam: Other - gait steady, moves x 4 ext's Neurological Exam: Normal - grossly nonfocal Psychological Exam: Normal - conversing easily and appropriately Skin Exam: Normal - nondiaphoretic no visible or reported rash Asthma Course/Dx - Course Course Of Treatment: CXR reviewed report with pt (Film Fresh) emphysematous changes o/w nad Improved s/p neb but still + cough REviewed coa / tx plan with pt and , including recommendation for close f /u with pcp. Questions as posed answered to the best of my ability. - Differential Dx/Diagnosis Provider Diagnosis: Acute bronchitis Discharge - Sign-Out/Discharge Documenting (check all that apply): Patient Departure All imaging exams completed and their final reports reviewed: Yes - Discharge Plan Condition: Stable Disposition: HOME Prescriptions: Albuterol 2.5MG/3ML (0.083%)* [Ventolin 2.5 MG/3 ML NEB.RINA*] 2.5 mg INH Q6H PRN #1 neb.soln PRN Reason: Wheezing Albuterol HFA INHALER* [Ventolin HFA Inhaler*] 1 - 2 puff INH Q6H PRN #1 mdi PRN Reason: Wheezing Benzonatate CAP* [Tessalon 100 MG CAP*] 100 mg PO TID PRN #30 cap PRN Reason: Cough DOXYcycline CAP(*) [DOXYcycline 100MG CAP(*)] 100 mg PO BID #20 cap Patient Education Materials: How to Stop Smoking (ED), Acute Bronchitis (ED), Emphysema (ED) Referrals: Katherine Flores MD [Primary Care Provider] - Additional Instructions: Please follow up with your primary care physician for checkup in the next 1-2 weeks. Respiratory checkup, recent weight loss. Seek medical attention for any worse or new problems Avoid prolonged exposure to the sun while taking antibiotics. Hydrate. - Billing Disposition and Condition Condition: STABLE Disposition: Home
[2018-11-24] MEDS ORDERED: Albuterol/Ipratropium NEB.SOL* Albuterol 2.5 MG/Ipratropium 0.5 MG 3 ML INH ONE (10:09)
--- NOTE | 2018-11-26 16:13 | UC ---
- Progress Note Progress Note: Patient Name: GELY HOUSE Medical Record#: [id number] Ordering Physician: Abimbola Cornell MD Acct.#: [id number] : 1955 Age: 63 Sex: F Location: [facility] [place] Exam Date: 11/24/18 1009 ADM Status: REG ER Order Information: CHEST PA & LAT 2 VWS Accession Number: [id number] CPT: 76360 INDICATION: Cough, shortness of breath, weight loss COMPARISON: May 23, 2018 chest radiograph TECHNIQUE: Dual-energy PA and lateral views of the chest were obtained. FINDINGS: The lungs are hyperinflated and the retrosternal space is expanded. There is no focal airspace consolidation. There is no pleural effusion. The cardiomediastinal silhouette is within normal limits. The upper abdominal contents are normal. Osseous structures are unremarkable. IMPRESSION: 1. No acute cardiopulmonary process by radiograph. 2. Emphysematous lungs. <Electronically signed by Elliot Wright MD in OV> 11/24/18 1031 Dictated By: Elliot Wright MD Dictated Date/Time: 11/24/18 1031 Transcribed Date/Time: 11/24/18 1028 Copy to: CC:Abimbola Cornell MD; Katherine Flores MD Imaging - [facility] Imaging [facility] [address] [address] ph ([phone]) ph ([phone]) ph ([phone]) This report is only to be considered final once signed by the Provider(s) as displayed in the "<Electronically Signed by >" field (s). Absence of a signature indicates the report is in a draft status and still needs to be finalized. In the event this document was created by someone other than the signing Provider, the individual initiating the document will be listed in the "Entered by:" or "Dictated by:" banda. 1 of 1 Course/Dx - Diagnoses Provider Diagnoses: Acute bronchitis Discharge - Sign-Out/Discharge Documenting (check all that apply): Post-Discharge Follow Up All imaging exams completed and their final reports reviewed: Yes - Discharge Plan Condition: Stable Disposition: HOME Prescriptions: Albuterol 2.5MG/3ML (0.083%)* [Ventolin 2.5 MG/3 ML NEB.RINA*] 2.5 mg INH Q6H PRN #1 neb.soln PRN Reason: Wheezing Albuterol HFA INHALER* [Ventolin HFA Inhaler*] 1 - 2 puff INH Q6H PRN #1 mdi PRN Reason: Wheezing Benzonatate CAP* [Tessalon 100 MG CAP*] 100 mg PO TID PRN #30 cap PRN Reason: Cough DOXYcycline CAP(*) [DOXYcycline 100MG CAP(*)] 100 mg PO BID #20 cap Patient Education Materials: How to Stop Smoking (ED), Acute Bronchitis (ED), Emphysema (ED) Referrals: Katherine Flores MD [Primary Care Provider] - Additional Instructions: Please follow up with your primary care physician for checkup in the next 1-2 weeks. Respiratory checkup, recent weight loss. Seek medical attention for any worse or new problems Avoid prolonged exposure to the sun while taking antibiotics. Hydrate. - Billing Disposition and Condition Condition: STABLE Disposition: Home
== END 2018-11-24 11:10 | disposition home or self-care (01) ==
LOC: UCCORT 08:53
DX: J20.9 Acute bronchitis, unspecified (principal); Z88.0 Allergy status to penicillin; Z88.2 Allergy status to sulfonamides; Z88.1 Allergy status to other antibiotic agents; F17.210 Nicotine dependence, cigarettes, uncomplicated
CPT/HCPCS: 71046; 99212; A9270-GY; G0463

== ENCOUNTER → 2019-01-12 | Day surgery (SDC) | payer BC ==
[~2019-01-12] MED LIST: Clopidogrel TAB* 300 MG ONE; Flumazenil* 0.1 MG/ML 5 ML MDV ONE; Heparin 2 UNITS/ML IVPREMIX* 3,000 ML IV ONE; Heparin(*) 1000 UNIT/ML 10 ML VIAL CATH LAB IV ONE; Iodixanol 320 (CONTRAST) 100 ML SDV ONE; Iohexol 350 (CONTRAST) 200 ML MDV IV ONE; LORazepam TAB(*) 1 MG ONE; Lidocaine 1% INJ* 10 MG/ML 30 ML SDV ONE; Midazolam* 1 MG/ML 5 ML VIAL (5 MG) ONE; Naloxone* 0.4 MG/ML 1 ML VIAL ONE; fentaNYL* 50 MCG/ML 2 ML VIAL (100 MCG VIAL) ONE; nitroGLYCERIN DRIP* 25,000 MCG/250 ML BTL ONE
--- NOTE | 2019-01-12 12:48 | PN ---
Progress Note - Progress Note Date of Service: 01/12/19 SOAP: Subjective: Patient denies pain complaints at the right groin or left thigh. No CP or SOB. 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 The right PASTEURIZING MACHINE OPERATOR access site was closed successfully with a 6 Portuguese AngioSeal percutaneous closure device. Plan: 1. Plavix 300 mg PO once at 1230. Then followed with Plavix 75 mg PO daily x 6 months. 2. Routine IR clinic follow up will include RN call 01/15/19 and DAWN and office visit in 1 month. 3. Patient encouraged to not smoke and walk daily after 24 hour recovery. 4. Ambulation and DC anticipated at 1330.
[2019-01-12 14:06] VITALS: BP 137/72
== END | disposition home or self-care (01) ==
LOC: CHICATH 06:51
PROVIDERS: ATTEND Radiology Diagnostic Radiology
DX: I70.212 Atherosclerosis of native arteries of extremities with intermittent claudication, left leg (principal); F17.210 Nicotine dependence, cigarettes, uncomplicated; Z88.0 Allergy status to penicillin; Z88.8 Allergy status to other drugs, medicaments and biological substances; R00.2 Palpitations; R10.84 Generalized abdominal pain; I35.8 Other nonrheumatic aortic valve disorders; E78.5 Hyperlipidemia, unspecified; K21.9 Gastro-esophageal reflux disease without esophagitis; F41.9 Anxiety disorder, unspecified
CPT/HCPCS: 75736; 76937; 85347; 99156; 99157; A9270-GY; C1724; C1725; C1760; C1769; C1887; C1894; J1644; J2250; J2310; J3010

== ENCOUNTER → 2019-06-01 06:50 | Day surgery (SDC) | payer BC ==
[~2019-06-01 06:50] MED LIST changes: -Clopidogrel TAB* 300 MG ONE; -Flumazenil* 0.1 MG/ML 5 ML MDV ONE; +Heparin 2 UNITS/ML IVPREMIX* 2,000 ML IV ONE; -Heparin 2 UNITS/ML IVPREMIX* 3,000 ML IV ONE; -Naloxone* 0.4 MG/ML 1 ML VIAL ONE; +Ticagrelor* 90 MG TAB PO ONE; +ceFAZolin 1 GM* X ONE DOSE (AddVan) IVPB; -fentaNYL* 50 MCG/ML 2 ML VIAL (100 MCG VIAL) ONE; +fentaNYL* 50 MCG/ML 5 ML VIAL (250 MCG VIAL) ONE; -nitroGLYCERIN DRIP* 25,000 MCG/250 ML BTL ONE
[2019-06-01 07:52] LABS: Activated Partial Thrombo Time 37.1 seconds (26.0-38.0); INR 0.97 (0.82-1.09)
[2019-06-01 08:01] LABS: BUN/Creatinine Ratio 19.3 (8-20); Calcium 8.8 mg/dL (8.6-10.3); EGFR African American 78.3 (>60); EGFR Non-African American 64.7 (>60); Potassium 4.1 mmol/L (3.5-5.0)
[2019-06-01 12:20] VITALS: BP 124/77
== END | disposition home or self-care (01) ==
LOC: CHICATH 06:50
PROVIDERS: ATTEND Radiology Diagnostic Radiology
DX: I70.212 Atherosclerosis of native arteries of extremities with intermittent claudication, left leg (principal); R00.2 Palpitations; I35.0 Nonrheumatic aortic (valve) stenosis; R10.84 Generalized abdominal pain; F17.210 Nicotine dependence, cigarettes, uncomplicated; R07.9 Chest pain, unspecified; E78.5 Hyperlipidemia, unspecified; K21.9 Gastro-esophageal reflux disease without esophagitis; F41.9 Anxiety disorder, unspecified
CPT/HCPCS: 36415; 75736; 76937; 80048; 85347; 85610; 85730; 99156; 99157; A9270-GY; C1725; C1760; C1769; C1887; C1894; J0690; J1644; J2250; J3010

== ENCOUNTER 2024-02-09 20:08 | Observation (INO) ==
[2024-02-09 20:50] LABS: ABS Basophils 0.1 10^3/uL (0.0-0.1); ABS Eosinophils 0.2 10^3/uL (0.0-0.5); ABS Monocytes 0.5 10^3/uL (0.0-0.9); ABS Nucleated RBC 0.01 10^3/ul; Eosinophil % 2.3 %; Hematocrit 48.2 % (35-45); Hemoglobin 16.2 g/dL (11.5-14.3); Lymphocyte % 34.2 %; Mean Corpuscular Hemoglobin 31.7 pg (27-33); Mean Corpuscular Hgb Conc 33.7 g/dL (31-36); Mean Corpuscular Volume 94.3 fL (80-97); Mean Platelet Volume 9.7 fL (7.5-11.2); Nucleated Red Blood Cells % 0.1 %/100WBC (0.0-0.8); Platelet Count 255 10^3/uL (150-450); Red Blood Count 5.11 10^6/uL (3.63-4.92); Red Cell Distribution Width 13.8 % (12-17); White Blood Count 8.8 10^3/uL (3.8-11.8)
[2024-02-09 20:53] LABS: Activated Partial Thrombo Time 38.3 seconds (26.0-38.0)
[2024-02-09 21:31] LABS: ALT 15 U/L (7-52); Albumin 3.8 g/dL (3.2-5.2); Albumin/Globulin Ratio 2.2 (1-3); Alkaline Phosphatase 51 U/L (35-149); Anion Gap 6 mmol/L (2-16); Blood Urea Nitrogen 11 mg/dL (6-24); CO2 Carbon Dioxide 26 mmol/L (22-32); Calcium 8.2 mg/dL (8.6-10.3); Chloride 110 mmol/L (101-111); Cholesterol 239 mg/dL; Creatinine, Serum 0.84 mg/dL (0.51-0.95); Globulin 1.7 g/dL (2-4); Glucose 89 mg/dL (70-100); LDL Cholesterol 163 mg/dL; Sodium 142 mmol/L (135-145); Total Bilirubin 0.5 mg/dL (0.2-1.0); Total Protein 5.5 g/dL (6.4-8.9); Triglycerides 211 mg/dL; eGFR CKD-EPI 75.2 (>60)
[2024-02-09] MEDS: Iodixanol 320 (CONTRAST) 100 ML SDV IV ONE (22:05)
[2024-02-10] MEDS: Aspirin EC 81 mg TAB.EC (enteric coated) PO SCH (02:05)
[2024-02-10] MEDS ORDERED: Sulfur Hexaflouride MICROSPHR 25 MG VIAL IV PRN (03:52)
[2024-02-10 05:00] LABS: Hematocrit 45.1 % (35-45); Hemoglobin 14.9 g/dL (11.5-14.3); Mean Corpuscular Hgb Conc 33.1 g/dL (31-36); Mean Corpuscular Volume 93.7 fL (80-97); Mean Platelet Volume 8.8 fL (7.5-11.2); Platelet Count 218 10^3/uL (150-450); Red Blood Count 4.82 10^6/uL (3.63-4.92); Red Cell Distribution Width 13.6 % (12-17); White Blood Count 8.3 10^3/uL (3.8-11.8)
[2024-02-10 05:34] LABS: Potassium Redraw 4.1 mmol/L (3.5-5.0)
[2024-02-10 05:41] LABS: Calcium 9.2 mg/dL (8.6-10.3); Creatinine, Serum 0.88 mg/dL (0.51-0.95); Magnesium 2.2 mg/dL (1.9-2.7); Potassium 4.1 mmol/L (3.5-5.0); eGFR CKD-EPI 71.1 (>60)
[2024-02-10 08:44] LABS: Urine Appearance Clear; Urine Bilirubin Negative (Negative); Urine Blood Negative (Negative); Urine Color Light-Yellow; Urine Glucose Negative (Negative); Urine Ketones Negative (Negative); Urine Nitrite Negative (Negative); Urine Protein Negative (Negative); Urine Specific Gravity 1.019 (1.002-1.030); Urine Urobilinogen Negative (Negative)
[2024-02-10 09:07] LABS: Urine Bacteria 1+ /HPF (Absent); Urine Red Blood Cell Trace(0-2/hpf) /HPF (0-Trace); Urine White Blood Cell 2+(11-20/hpf) /HPF (0-Trace)
[2024-02-10] MEDS: CMCS: Meloxicam 7.5 mg TAB (NF) PO SCH (09:33)
[2024-02-10] MEDS: CMCS: Mirabegron 25 mg ER TAB (NF) PO SCH (09:34)
[2024-02-10] MEDS: Enoxaparin 40 MG/0.4 ML SYR SUBCUT SCH (09:36)
[2024-02-11 09:48] VITALS: BP 129/73
== END 2024-02-11 13:30 | disposition home or self-care (01) ==
LOC: EDHOLD 20:08 → ED 20:08 → MEDTELE 02-10 00:34
PROVIDERS: ADMIT Student in an Organized Health Care Education/Training Program; ATTEND Internal Medicine